=== PATIENT | female | born 1965 | race Caucasian/White ===

== ENCOUNTER 2019-11-22 17:37 | Emergency (ER) | payer OTHER, SELFPAY ==
[2019-11-22 17:38] VITALS: PULSE 96; RESP 16; TEMP 36.4; O2SAT 97; BMI 36.3
[2019-11-22 17:46] VITALS: BP 166/138
--- NOTE | 2019-11-22 17:48 | RAD_ITS ---
STUDY: X-RAY - LEFT RADIUS AND ULNA REASON FOR EXAM: Female, 54 years old. FALL, PAIN TECHNIQUE: 3 view(s) of the forearm. COMPARISON: None. FINDINGS: Nondisplaced fracture of the distal radius. No demonstrated extension to the articular surface. No angulation. No additional fracture. No dislocation. And bony structures are otherwise unremarkable. Medial soft tissue swelling. RAD/Forearm 2 Views IMPRESSION: Nondisplaced fracture of the distal radius. Electronically Signed: Samanta Isaac MD at 18:29 EDT Tel , Service support ,
--- NOTE | 2019-11-22 17:48 | ED.DCSUM_ITS ---
History of Present Illness Chief Complaint: Upper Extremity Injury Informant: Patient, Family Onset: Today Current Severity: Severe Maximum Severity: Severe Narrative: Patient presents with fall and left forearm injury. She fell in her garage landing on her left forearm. Patient denies striking her head or loss of consciousness. She denies neck pain. - Past Medical History (1) Asthma Status: Chronic (2) Benign hypertension Status: Chronic (3) History of pulmonary embolism Status: Chronic (4) Hypothyroidism Status: Chronic Past Medical History - Allergies and Home Meds Allergies/Adverse Reactions: Allergies No Known Allergies Allergy (Verified 11/22/19 17:41) Primary Care Physician: Inder Ramires III, MD [Primary Care Provider] - Surgical History: - - Radial decompression bilateral elbows Smoking Status: Current every day smoker Review of Systems General: Denies: Chills, Fever Eyes: Denies: Visual changes - bilaterally ENT: Denies: Bilateral ear pain Cardiovascular: Denies: Chest pain Respiratory: Denies: Dyspnea, Cough Gastrointestinal: Denies: Abdominal pain, Vomiting Musculoskeletal: Reports: Extremity Pain Skin: Denies: Rash Neurological: Denies: Headache Hematologic: Denies: Easy bruising, Easy bleeding Allergy: Denies: Uticaria, Swelling of the mouth Physical Exam Vital Signs/Narrative: Vital Signs Temp Pulse Resp BP Pulse Ox 11/22/19 17:46 166/138 H 11/22/19 17:38 97.5 F L 96 16 97 Inital Vital Signs reviewed: Yes General: Well nourished, Well developed Head: Normocephalic ENT: Moist mucous membranes Neck: Supple Cardiovascular: Tachycardia Respiratory: No distress, CTA bilaterally Abdomen: Soft, Nontender Extremities: - - Diffuse tenderness throughout the left forearm. No tenderness at the elbow or shoulder. Patient can wiggle fingers and has good sensation and cap refill distally. Neurological: Alert, Oriented x3 Psychological: Tearful Diagnostic/Tx/Re-eval Impressions Forearm X-Ray 11/22/19 17:48 IMPRESSION: Nondisplaced fracture of the distal radius. Electronically Signed: Samanta Isaac MD at 18:29 EDT Tel , Service support , 11/22/19 17:48 Xray Forearm [Forearm 2 Views] [RAD] Stat - Medical Decision Making Patient was given a total of 1.5 mg IV Dilaudid for pain control. [facility]- Glass splint is applied by myself. Following splint application she has good cap refill distally and can wiggle fingers. Patient be given a prescription for Percocet for pain control. She has seen Dr. Oneal at the [facility] in the past and will follow up with him. Procedures - Upper Extremity Splints Upper Extremity Splint: Orthoglass Splint Fabrication: Fabricated Location: Left ED Disposition - Plan for ED Patient: Disposition: Home or Assisted Living Diagnosis: Left wrist fracture Instructions: ED WRIST FRACTURE General Prescriptions: Oxycodone HCl/Acetaminophen [Percocet 5/325] 1 tablet PO Q6H PRN PRN 5 Days #20 tablet PRN Reason: Pain Score 4-10/10 Referrals: Ja Oneal MD [NON-STAFF] - 5-7 Days
[2019-11-22] MEDS: Ondansetron 4 MG/2 ML Vial IV (17:51)
[2019-11-22] MEDS: HYDROmorphone 1 MG/ML Syringe IV (17:51)
[2019-11-22] MEDS: 0.9% Normal Saline 1,000 ML 150 ML IV (18:00)
[2019-11-22] MEDS: HYDROmorphone 0.5 MG/0.5 ML SYRINGE IV (18:22)
[2019-11-22 18:52] VITALS: BP 154/92
== END 2019-11-22 19:05 | disposition home or self-care (01) ==
PROVIDERS: Emergency Provider Emergency Medicine; PCP Family Medicine
DX: S52.502A Unspecified fracture of the lower end of left radius, initial encounter for closed fracture (principal); J45.909 Unspecified asthma, uncomplicated; I10 Essential (primary) hypertension; E03.9 Hypothyroidism, unspecified; F17.200 Nicotine dependence, unspecified, uncomplicated; Z86.711 Personal history of pulmonary embolism; Z79.51 Long term (current) use of inhaled steroids; Z79.899 Other long term (current) drug therapy; W18.30XA Fall on same level, unspecified, initial encounter; Y93.89 Activity, other specified; Y92.008 Other place in unspecified non-institutional (private) residence as the place of occurrence of the external cause; Y99.8 Other external cause status
CPT/HCPCS: 29125; 73090; 96361; 96374; 96375; 96376; 99284; J7030; A4216; J2405

== ENCOUNTER → 2019-11-26 | Outpatient (CLI) | payer OTHER, SELFPAY ==
[2019-11-22 17:38] VITALS: BMI 36.3
== END | disposition home or self-care (01) ==
LOC: LABSPEC 14:23
PROVIDERS: PCP Family Medicine; Visit Provider Family Medicine
DX: Z11.59 Encounter for screening for other viral diseases (principal)
CPT/HCPCS: 87635; U0003

== ENCOUNTER → 2019-12-08 | Outpatient (CLI) | payer OTHER, SELFPAY ==
[2019-11-22 17:38] VITALS: BMI 36.3
== END | disposition home or self-care (01) ==
LOC: LABSPEC 14:58
PROVIDERS: PCP Family Medicine; Visit Provider Family Medicine
DX: Z11.59 Encounter for screening for other viral diseases (principal)
CPT/HCPCS: 87635; U0003

== ENCOUNTER → 2020-08-10 | Outpatient (CLI) | payer BC, SELFPAY | END | disposition home or self-care (01) | PROVIDERS: PCP Family Medicine; Referring Provider Family Medicine; Visit Provider Family Medicine | DX: U07.1 COVID-19 (principal) | CPT/HCPCS: 87635; U0005; U0003 ==

== ENCOUNTER 2020-08-11 12:27 | Emergency (ER) | payer BC, SELFPAY ==
[2020-08-11 12:28] VITALS: BP 164/100; PULSE 74; RESP 18; TEMP 36.6; O2SAT 97; BMI 36.3
[2020-08-11 12:38] VITALS: O2SAT 95
--- NOTE | 2020-08-11 12:49 | ED.VIS.DYS ---
HPI History of Present Illness Chief Complaint: Shortness of Breath Informant: patient and spouse/S.O. Onset/Context/Timing Onset: Weeks Context: gradual Timing: Continuous Current Severity: Mild Maximum Severity: Severe Worsened by: Exertion and Coughing Relieved by: Nothing Associated Symptoms cough, rhinorrhea, sore throat, yellow sputum and other; Negative for ear pain, fever, subjective, chills or sweats Chest Pain: Positive for None Narrative Narrative: Patient is a middle-aged woman with history of chronic significant asthma on multiple meds who presents because she had no improvement after 2 aerosol treatments. Patient has been ill most of July. She was given a Kenalog injection earlier this month. She denies headache, visual, ocular or auditory symptoms. She does report rhinorrhea and congestion. She does have history of allergies. She denies pleuritic pain, leg pain or swelling. She does have history of PE and is concerned because she has hemoptysis. She denies GI or symptoms. She denies rash. She denies myalgias or arthralgias. She had a rapid Covid test performed at the hospital this morning that was positive. PE Risk Factors: Positive for Prior DVT or PE; Negative for Cancer, OCP + Smoking + > 35, Recent immobilization, Recent surgery and Recent travel Prior similar symptoms: Yes Recent Illness/Hospitalization: No PFSH PFSH Medical History Asthma Hypothyroid Polycystic ovarian disease Pulmonary embolus Home Medications Fluticasone 220 Mcg [Flovent 220 Mcg] 2 puff INHALATION BID 03/29/13 [History Last Taken 01/13/15] levothyroxine 112 mcg PO DAILY 03/29/13 [History Last Taken 01/13/15] metformin 500 mg PO BIDCM 03/29/13 [History Last Taken 01/13/15] montelukast 10 mg PO DAILY 02/09/16 [History Last Taken Unknown] albuterol sulfate 2.5 mg INHALATION Q4H PRN PRN 03/25/17 [History Last Taken Unknown] fexofenadine-pseudoephedrine 1 ea PO BID 11/22/19 [History Last Taken Unknown] Allergy/AdvReac Type Severity Reaction Status Date / Time No Known Allergies Allergy Verified 11/22/19 17:41 Social History (Updated 05/28/21 @ 12:[address] Yonas Medina MD) household members: spouse and children Smoking Status: Never smoker alcohol intake: current alcohol intake frequency: holidays/special occasions only substance use type: does not use ROS ROS ED Constitutional Constitutional ED: Denies chills, fever(s) or sweats Eyes Eyes: Denies blurry vision or change in vision ENT ENT ED: Reports rhinorrhea and sore throat; Denies ear pain Cardiovascular Cardiovascular: Denies chest pain, orthopnea, palpitations, paroxysmal nocturnal dyspnea or racing heartbeat Respiratory/Chest Respiratory/Chest: Reports cough, dyspnea, dyspnea on exertion and sputum; Denies orthopnea or paroxysmal nocturnal dyspnea Gastrointestinal Gastrointestinal: Denies abdominal pain, constipation, diarrhea, melena, nausea or vomiting Genitourinary Genitourinary ED: Denies dysuria, hematuria or urinary frequency Musculoskeletal Musculoskeletal: Denies arthralgias, myalgias or neck pain Integumentary Denies rash Neurologic Neurologic: Denies headache(s) or weakness Hematologic/Lymphatic Hematologic/Lymphatic: Denies easy bleeding or easy bruising EXAM Physical Exam Const Vital Signs: 08/11/20 12:28 08/11/20 12:38 08/11/20 14:26 Temperature 97.8 F 97.8 F Temperature Source Temporal Oral Pulse Rate 74 61 Respiratory Rate 18 12 Respiratory Effort Short of Breath Labored Respiratory Depth Normal Respiratory Pattern Normal Blood Pressure 164/100 H 138/87 H Blood Pressure Mean 121 104 Pulse Ox 97 92 Oxygen Delivery Method Room Air Room Air Room Air Positive well nourished, well developed and obese General Appearance ED: well developed and other Patient has expiratory stridor and not wheezing. She appears in respiratory distress. She is tachypneic. There is minimal use of accessory muscles. There is no retractions. Nutritional Appearance: obese HEENT Reports moist mucous membranes HEENT Narrative: Uvula is midline. There is no evidence of angioedema. Negative for tenderness Eyes PERRL and EOMs intact bilaterally General Eye ED: Negative for pale conjunctiva or scleral icterus Neck no lymphadenopathy, supple, no meningeal signs and no JVD Neck Narrative: Trachea is midline and with forced expiration there is expiratory stridor. General: Negative for tenderness Resp No normal respiratory effort and clear to auscultation bilaterally Cardio regular rate, regular rhythm, S1 normal heart sound, S2 normal heart sound and no murmurs GI non-distended and no masses Auscultation: normoactive bowel sounds Palpation: soft Back/Spine no CVA tenderness and normal to inspection Extremity normal to inspection Extremity Narrative: There is no asymmetry, swelling, discoloration, leg vein distention, palpable cords or tenderness along the distribution of the deep venous system. General Extremety ED: Negative for edema or tenderness General Extremity: Negative for edema Neuro oriented x3, CN's II-XII intact bilaterally and no sensory deficits noted Sensorium / Orientation: alert Motor Exam: strength 5/5 throughout Psych mental status grossly normal Thought Process: normal thought process Skin no wounds Lesions: no lesions Rashes: no rashes MDM MDM MDM Narrative Medical decision making narrative: Patient is not PERC negative. Will obtain a D-dimer. Chest x-ray was obtained to evaluate for pneumonia since she has a positive Covid test. Soft tissue x-ray of the neck was obtained because of the expiratory stridor. Appropriate blood work was ordered as well. She was treated with Solu-Medrol. Lab Data Attestation: I reviewed the patient's lab results. Lab results narrative: Creatinine is slightly up from baseline. She has mild renal insufficiency. Labs: Laboratory Results - last 24 hr 08/11/20 08/11/20 08/11/20 12:45 12:45 12:45 WBC 4.6 RBC 4.97 Hgb 14.5 Hct 45.0 MCV 90.5 MCH 29.2 MCHC 32.2 RDW Std Deviation 46.4 H RDW Coeff of Evangelist 14.1 Plt Count 206 MPV 10.8 Immature Gran % (Auto) 0.200 Neut % (Auto) 53.7 Lymph % (Auto) 36.2 [place] % (Auto) 8.8 Eos % (Auto) 0.9 Baso % (Auto) 0.2 Absolute Neuts (auto) 2.5 Absolute Lymphs (auto) 1.65 Nucleated RBC % 0 D-Dimer Quant (PE/DVT) 0.52 H* Sodium 140 Potassium 3.7 Chloride 106 Carbon Dioxide 27.0 Anion Gap 7 BUN 18 Creatinine 1.13 H Estim Creat Clear Calc 53.28 Est GFR (MDRD) Af Amer 64 Est GFR (MDRD) Non-Af 53 L BUN/Creatinine Ratio 15.9 Glucose 85 Lactic Acid Calcium 9.3 Total Bilirubin 0.50 AST 39 H ALT 47 Alkaline Phosphatase 117 Total Protein 7.9 Albumin 3.9 Globulin 4.0 Albumin/Globulin Ratio 1.0 08/11/20 13:05 WBC RBC Hgb Hct MCV MCH MCHC RDW Std Deviation RDW Coeff of Evangelist Plt Count MPV Immature Gran % (Auto) Neut % (Auto) Lymph % (Auto) [place] % (Auto) Eos % (Auto) Baso % (Auto) Absolute Neuts (auto) Absolute Lymphs (auto) Nucleated RBC % D-Dimer Quant (PE/DVT) Sodium Potassium Chloride Carbon Dioxide Anion Gap BUN Creatinine Estim Creat Clear Calc Est GFR (MDRD) Af Amer Est GFR (MDRD) Non-Af BUN/Creatinine Ratio Glucose Lactic Acid 1.6 Calcium Total Bilirubin AST ALT Alkaline Phosphatase Total Protein Albumin Globulin Albumin/Globulin Ratio D-dimer is normal once corrected for age. Radiography Chest X-Ray - ED: 1 View, Read by ED Physician (Single chest x-ray was normal cardiac size and silhouette. Mediastinum is normal. Lung parenchyma is normal. Osseous structures are normal.) and - (2 view x-ray of the soft tissue reveals normal epiglottis, retropharyngeal space and parapharyngeal space. There is no evidence of sublingual or enlarged tonsils.) Diagnostic Testing: Radiology Impression Chest X-Ray 08/11/20 13:22 IMPRESSION: No acute cardiopulmonary findings Electronically Signed: Dk Cedeno DO at 13:55 EDT Tel , Service support , Soft Tissue Neck X-Ray 08/11/20 13:22 IMPRESSION: Normal x-ray soft tissue neck. Electronically Signed: Christopher Whiteside MD ([place]) at 13:37 EDT , Service support , Discharge Plan Triage Chief Complaint: Shortness of Breath ED Provider: Yonas Medina Dx/Rx/DC Orders Clinical Impression: COVID-19 virus infection, Asthma, Cough with hemoptysis Instructions: Coronavirus Disease 2019 (COVID-19): Caring for Yourself or Others, ED Hemoptysis Prescriptions: No Action metformin 500 MG tablet 500 mg PO BIDCM RF: 0 levothyroxine 112 MCG tablet 112 mcg PO DAILY RF: 0 Fluticasone 220 Mcg [Flovent 220 Mcg] 1 INHALER inhaler 2 puff inhalation BID RF: 0 montelukast 10 MG tablet 10 mg PO DAILY RF: 0 albuterol sulfate 2.5 MG/3 ML Vial.Neb. 2.5 mg inhalation Q4H PRN PRN (Reason: Sob &/Or Wheezing) RF: 0 fexofenadine-pseudoephedrine 1 EACH tablet extended release 12 hr 1 ea PO BID RF: 0 Primary Care Provider: Inder Ramires III Referrals: Inder Ramires III, MD [Primary Care Provider] - Chapito Lane DO [NON-STAFF] - 1-2 Weeks (Patient is Covid positive. Patient has several symptoms that suggest obstructive sleep apnea. Once she is Covid recovered she should have an outpatient test for obstructive sleep apnea) Disposition Disposition: Home, self care
[2020-08-11 12:55] LABS: Absolute Lymphocyte Count 1.65 X10^3/uL (0.83-4.51); Absolute Neutrophil Count 2.5 X10^3/uL (2.0-7.7); Basophil# 0.01 X10^3/uL; Basophil% 0.2 % (0-1); Eosinophil# 0.04 X10^3/uL; Eosinophils% 0.9 % (0-5); Hemoglobin 14.5 g/dL (12.0-15.0); Lymphocyte # 1.65 X10^3/ul (0.83-4.51); Lymphocyte % 36.2 % (19-41); Mean Corp Hgb Conc 32.2 g/dL (32-36); Mean Corpuscular Hgb 29.2 pg (27.0-32.0); Mean Corpuscular Volume 90.5 fL (81-99); Mean Platelet Vol. 10.8 fl (6.2-12.0); Monocyte% 8.8 % (0-10); NRBC Flagged by Analyzer 0 % (0-5); Neutrophil # 2.45 X10^3/uL (2.7-7.7); Neutrophil % 53.7 % (47-70); Platelet Count 206 K/mm3 (150-450); RBC Distribution Width CV 14.1 % (11.6-14.6); RBC Distribution Width SD 46.4 fl (35.1-43.9); Red Blood Count 4.97 M/mm3 (4.2-5.4); White Blood Count 4.6 K/mm3 (4.4-11.0)
[2020-08-11] MEDS: MethylPREDNISolone 125 MG/2 ML Vial IV (13:11)
[2020-08-11 13:12] LABS: AST(SGOT) 39 U/L (15-37); Alanine Aminotransfer ALT/SGPT 47 U/L (13-56); Albumin, Serum 3.9 g/dL (3.2-5.0); Alkaline Phosphatase 117 U/L (45-117); Anion Gap 7 (5-15); BUN 18 mg/dL (7-18); BUN/Creat Ratio 15.9 RATIO (10-20); Calcium,Total 9.3 mg/dL (8.5-10.1); Chloride 106 mmol/L (98-107); Creatinine, Serum 1.13 mg/dL (0.55-1.02); EST Glomerular Filtration Rate 53 mL/min (>60); Est Glom Filt Rate - Afr Amer 64 mL/min (>60); Estimated Creatinine Clearance 53.28 ml/min; Glucose 85 mg/dL (74-106); Potassium 3.7 mmol/L (3.5-5.1); Protein, Total 7.9 g/dL (6.4-8.2); Sodium Level 140 mmol/L (136-145)
[2020-08-11 13:14] LABS: D-Dimer Quantitative (DVT/PE) 0.52 FEU/ug/m (0.27-0.49)
--- NOTE | 2020-08-11 13:22 | RAD_ITS ---
STUDY: X-RAY - SOFT TISSUE NECK REASON FOR EXAM: Female, 54 years old. Expiratory stridor TECHNIQUE: 2 view(s) of the neck were obtained. COMPARISON: None. FINDINGS: Normal visualized nasopharynx, oropharynx, hypopharynx. Normal epiglottis. Normal visualized subglottic tracheal air column. Normal prevertebral soft tissue structures. There are degenerative changes of the cervical spine with cervical spondylosis. The soft tissue structures are unremarkable. RAD/Neck for Soft Tissue IMPRESSION: Normal x-ray soft tissue neck. Electronically Signed: Christopher Whiteside MD ([place]) at 13:37 EDT , Service support ,
--- NOTE | 2020-08-11 13:22 | RAD_ITS ---
STUDY: X-RAY CHEST REASON FOR EXAM: Female, 54 years old. cough TECHNIQUE: Single AP portable view of the chest. COMPARISON: 09/22/2012. FINDINGS: Left shoulder rotator cuff repair. Cardiac silhouette unremarkable. Pulmonary vascularity unremarkable. Aorta unremarkable. No focal patchy airspace opacities. No pleural effusions. Upper abdomen unremarkable. Osseous structures intact. No pneumothorax. RAD/Chest 1 View (Portable) IMPRESSION: No acute cardiopulmonary findings Electronically Signed: Dk Cedeno DO at 13:55 EDT Tel , Service support ,
[2020-08-11 13:46] LABS: Lactic Acid 1.6 mmol/L (0.4-1.9)
[2020-08-11 14:26] VITALS: BP 138/87; PULSE 61; RESP 12; TEMP 36.6; O2SAT 92
== END 2020-08-11 14:55 | disposition home or self-care (01) ==
PROVIDERS: Emergency Provider Emergency Medicine; PCP Family Medicine
DX: U07.1 COVID-19 (principal); J45.909 Unspecified asthma, uncomplicated; R04.2 Hemoptysis; E03.9 Hypothyroidism, unspecified; E66.9 Obesity, unspecified; Z79.899 Other long term (current) drug therapy; Z79.51 Long term (current) use of inhaled steroids
CPT/HCPCS: 36415; 70360; 71045; 80053; 83605; 85025; 85379; 87040; 96374; 99284; A4216

== ENCOUNTER 2020-08-18 07:15 | Inpatient (IN) | payer BC, SELFPAY ==
[2020-08-18] VITALS (18 sets, daily range): BP systolic 141–181; BP diastolic 89–111; PULSE 58–93; RESP 14–24; TEMP 36.6–37.4; O2SAT 93–100; BMI 36.3
--- NOTE | 2020-08-18 07:29 | EKG12_ITS ---
Test Reason : SOB Blood Pressure : / mmHG Vent. Rate : 088 BPM Atrial Rate : 088 BPM P-R Int : 176 ms QRS Dur : 088 ms QT Int : 388 ms P-R-T Axes : 058 040 030 degrees QTc Int : 469 ms Normal sinus rhythm Normal ECG Confirmed by NATACHA MILLS, GRACE ([id number]), slot editor REZA DESHPANDE ([id number]) on 08/21/2020 10:33:49 AM Referred By: BRAYAN Confirmed By:GRACE MANZANO MD
--- NOTE | 2020-08-18 07:29 | CT_ITS ---
STUDY: CTA CHEST REASON FOR EXAM: Female, 54 years old. Shortness of breath. Recent diagnoses of Covid RADIATION DOSAGE (If Supplied By Facility): CTDIvol = ( 15.59 ) mGy, DLP = ( 920.54 ) mGycm TECHNIQUE: The examination was performed with the intravenous administration of IV 100mL Isovue-370. Post-processing of the angiographic images was performed, with multiplanar reformation and 3D reconstruction. Individualized dose optimization techniques were used for this CT. COMPARISON: Comparison is made with prior study dated 03/25/2017. FINDINGS: Normal enhancement of the main pulmonary artery and right and left pulmonary arteries. Normal enhancement of the bilateral peripheral pulmonary arteries. There is no demonstrated pulmonary embolism. Normal thoracic aorta and visualized great vessels. There is no demonstrated aortic dissection. Normal heart and pericardium. Normal mediastinum. There is a 1.5 cm lymph node in the right hilar region. Normal visualized trachea and bronchi. The lungs are well expanded. Focal atelectasis and/or infiltrate in the posterior aspect of the right upper lobe. There is evidence of a consolidation in the right lower lobe. Minimal increased markings in the left infrahilar region. Minimal increased markings at the left lung base. Normal pleura. Normal chest wall structures. There are degenerative changes of thoracic spine. Normal visualized upper abdomen. CT/CTA Chest W/WO Contrast IMPRESSION: No evidence of pulmonary embolism. Consolidation in the right lower lobe with minimal increased markings in the left infrahilar region as well as in the posterior aspect of the right upper lobe. Electronically Signed: Selvin Herrmann MD at 9:24 EDT , Service support ,
--- NOTE | 2020-08-18 07:33 | EDS_ITS ---
HPI History of Present Illness Chief Complaint: Shortness of Breath Informant: patient and family Onset/Context/Timing Onset: Days Context: gradual Timing: Continuous Quality: Positive for Dyspnea on exertion and Wheezing Current Severity: Moderate Maximum Severity: Moderate Worsened by: Coughing Relieved by: Nothing Associated Symptoms cough Chest Pain: Positive for Intermittent and Tightness Narrative Narrative: Patient is a 54-year-old female medical history significant for asthma, hypertension, history of pulmonary embolus, and recent diagnosis of Covid who presents to the emergency department cough, shortness of breath, and chest pain. Patient was diagnosed about a week ago. She was seen here. At that point, she underwent work-up which was essentially unremarkable. She was discharged home. The patient states that she has been checking her pulse ox daily. She states she was doing well until yesterday. Overnight throughout the morning, her pulse ox has been anywhere from 86-92. She would have coughing fits with worsening chest pain. She felt like she was going to pass out. [facility] Medical History Asthma Hypothyroid Polycystic ovarian disease Pulmonary embolus Home Medications levothyroxine 112 mcg PO DAILY 03/29/13 [History Last Taken 01/13/15] metformin 500 mg PO BIDCM 03/29/13 [History Last Taken 01/13/15] montelukast 10 mg PO DAILY 02/09/16 [History Last Taken Unknown] albuterol sulfate 2.5 mg INHALATION Q4H PRN PRN 03/25/17 [History Last Taken Unknown] fexofenadine-pseudoephedrine 1 ea PO BID 11/22/19 [History Last Taken Unknown] Allergy/AdvReac Type Severity Reaction Status Date / Time No Known Allergies Allergy Verified 08/18/20 07:20 Social History household members: spouse and children Smoking Status: Never smoker alcohol intake: current alcohol intake frequency: holidays/special occasions only substance use type: does not use ROS ROS ED Constitutional Constitutional ED: Reports chills Eyes Eyes: Denies blurry vision or change in vision ENT ENT ED: Denies ear pain or sore throat Cardiovascular Cardiovascular: Reports chest pain Respiratory/Chest Respiratory/Chest: Reports cough and dyspnea Gastrointestinal Gastrointestinal: Denies abdominal pain, nausea or vomiting Genitourinary Genitourinary ED: Denies dysuria or urinary frequency Musculoskeletal Musculoskeletal: Denies arthralgias or myalgias Integumentary Denies rash Neurologic Neurologic: Reports weakness Psychiatric Psychiatric: Denies anxiety or depression Endocrine Endocrinology: Denies polydipsia or polyuria Allergic/Immunologic Allergic/Immunologic ED: Denies urticaria EXAM Physical Exam Const Vital Signs: 08/18/20 07:17 08/18/20 07:29 08/18/20 07:36 Temperature 98.3 F 98.3 F Temperature Source Temporal Temporal Pulse Rate 93 93 Respiratory Rate 17 17 Respiratory Effort Short of Breath Labored Blood Pressure 169/92 H 169/92 H Blood Pressure Mean 117 117 Pulse Ox 95 95 Oxygen Delivery Method Room Air Room Air Room Air 08/18/20 07:55 Temperature Temperature Source Pulse Rate 78 Respiratory Rate 20 H Respiratory Effort Blood Pressure Blood Pressure Mean Pulse Ox Oxygen Delivery Method Positive well nourished and well developed General Appearance ED: well developed HEENT Reports normocephalic, head/scalp atraumatic and moist mucous membranes Eyes PERRL and EOMs intact bilaterally Neck no lymphadenopathy and supple General: Negative for tenderness Chest Wall inspection of chest normal Resp normal respiratory effort Auscultation: diminished lung sounds Cardio regular rate, regular rhythm and no murmurs GI normal to inspection, nondistended, normoactive bowel sounds Palpation: Negative for tender, guarding or rebound tenderness present Back/Spine no CVA tenderness Cervical Spine: Negative for cervical spine tenderness Thoracic Spine / Upper Back: Negative for thoracic spinal tenderness Extremity normal to inspection General Extremety ED: Negative for tenderness Neuro oriented x3 and CN's II-XII intact bilaterally Neuro Narrative: No focal deficits appreciated. Sensorium / Orientation: alert; Negative for confused or lethargic Psych mental status grossly normal Skin no rashes or lesions noted, no wounds and skin turgor normal MDM MDM MDM Narrative Medical decision making narrative: The patient presents Covid positive with persistent bronchospasm and intermittent hypoxia. IV was established. Patient was given a breathing treatment with some improvement. She still had persistent bronchospasm. Labs were obtained were unremarkable. With patient's history of PE and borderline hypoxia, I did obtain CTA. There is no evidence of pulmonary embolus. There is a dense right lower lobe infiltrate. This may be viral, but given her persistent symptoms and hypoxia I am going to cover her with broad- spectrum antibiotics. The patient was also covered with Decadron. At this po int, I do feel that she effectively has failed outpatient treatment. She has oxygen requirement with dense pneumonia and history of underlying lung disease. I do feel that she would benefit from admission. Impression 1. Hypoxia requiring supplemental oxygen 2. COVID-19 3. Right lower lobe pneumonia Lab Data Attestation: I reviewed the patient's lab results. Labs: Laboratory Results - last 24 hr 08/18/20 08/18/20 08/18/20 07:45 07:45 07:45 WBC 4.5 RBC 4.60 Hgb 13.5 Hct 41.0 MCV 89.1 MCH 29.3 MCHC 32.9 RDW Std Deviation 45.8 H RDW Coeff of Evangelist 14.1 Plt Count 172 MPV 10.8 Immature Gran % (Auto) 0.700 Neut % (Auto) 68.0 Lymph % (Auto) 21.8 [place] % (Auto) 8.0 Eos % (Auto) 1.3 Baso % (Auto) 0.2 Absolute Neuts (auto) 3.1 Absolute Lymphs (auto) 0.98 Nucleated RBC % 0 Sodium 140 Potassium 3.4 L Chloride 106 Carbon Dioxide 27.0 Anion Gap 7 BUN 15 Creatinine 0.90 Estim Creat Clear Calc 66.90 Est GFR (MDRD) Af Amer 83 Est GFR (MDRD) Non-Af 69 BUN/Creatinine Ratio 16.6 Glucose 97 Lactic Acid 1.3 Calcium 8.9 Total Bilirubin 0.60 AST 35 ALT 44 Alkaline Phosphatase 110 Troponin I < 0.015 Total Protein 7.9 Albumin 3.7 Globulin 4.2 Albumin/Globulin Ratio 0.9 Rhythm Strip Rhythm Strip: Sinus Rhythm Rate: 80 Ectopy: None EKG Initial EKG: Attestation: I personally reviewed and interpreted this EKG as follows: Interpretation: Sinus Rhythm and Non-Specific ST Changes Prior EKG tracings: available for review Prior: Unchanged Discharge Plan Triage Chief Complaint: Shortness of Breath ED Provider: Godfrey Duarte Dx/Rx/DC Orders Prescriptions: No Action metformin 500 MG tablet 500 mg PO BIDCM RF: 0 levothyroxine 112 MCG tablet 112 mcg PO DAILY RF: 0 montelukast 10 MG tablet 10 mg PO DAILY RF: 0 albuterol sulfate 2.5 MG/3 ML solution for nebulization 2.5 mg inhalation Q4H PRN PRN (Reason: Sob &/Or Wheezing) RF: 0 fexofenadine-pseudoephedrine 1 EACH tablet extended release 12 hr 1 ea PO BID RF: 0 Primary Care Provider: Inder Ramires III
[2020-08-18] MEDS: 0.9% Normal Saline 1,000 ML 125 ML IV ×3 (07:45→21:07)
[2020-08-18] MEDS: Ipratropium/Albuterol Sulfate 3 ML AMPUL.NEB INHALATION ×4 (07:55→22:49)
[2020-08-18 07:59] LABS: Absolute Lymphocyte Count 0.98 X10^3/uL (0.83-4.51); Absolute Neutrophil Count 3.1 X10^3/uL (2.0-7.7); Basophil# 0.01 X10^3/uL; Basophil% 0.2 % (0-1); Eosinophil# 0.06 X10^3/uL; Eosinophils% 1.3 % (0-5); Hemoglobin 13.5 g/dL (12.0-15.0); Lymphocyte # 0.98 X10^3/ul (0.83-4.51); Lymphocyte % 21.8 % (19-41); Mean Corp Hgb Conc 32.9 g/dL (32-36); Mean Corpuscular Hgb 29.3 pg (27.0-32.0); Mean Corpuscular Volume 89.1 fL (81-99); Mean Platelet Vol. 10.8 fl (6.2-12.0); Monocyte# 0.36 X10^3/uL; NRBC Flagged by Analyzer 0 % (0-5); Neutrophil # 3.06 X10^3/uL (2.7-7.7); Platelet Count 172 K/mm3 (150-450); RBC Distribution Width CV 14.1 % (11.6-14.6); RBC Distribution Width SD 45.8 fl (35.1-43.9); White Blood Count 4.5 K/mm3 (4.4-11.0)
[2020-08-18] MEDS: LORazepam 2 MG/ML Syringe 0.5 MG IV (08:02)
[2020-08-18 08:18] LABS: ALB/GLOB Ratio 0.9 RATIO (0.9-2.4); AST(SGOT) 35 U/L (15-37); Alanine Aminotransfer ALT/SGPT 44 U/L (13-56); Albumin, Serum 3.7 g/dL (3.2-5.0); Alkaline Phosphatase 110 U/L (45-117); Anion Gap 7 (5-15); BUN 15 mg/dL (7-18); BUN/Creat Ratio 16.6 RATIO (10-20); Calcium,Total 8.9 mg/dL (8.5-10.1); Chloride 106 mmol/L (98-107); EST Glomerular Filtration Rate 69 mL/min (>60); Est Glom Filt Rate - Afr Amer 83 mL/min (>60); Globulin 4.2 g/dL (2.2-4.2); Glucose 97 mg/dL (74-106); Potassium 3.4 mmol/L (3.5-5.1); Protein, Total 7.9 g/dL (6.4-8.2); Sodium Level 140 mmol/L (136-145)
[2020-08-18 08:41] LABS: Lactic Acid 1.3 mmol/L (0.4-1.9)
[2020-08-18] MEDS: dexAMETHasone 10 MG/ML Vial 6 MG IV (09:01)
[2020-08-18] MEDS: Ceftriaxone 1 GM/50 ML BAG IV (09:14)
[2020-08-18] MEDS: Albuterol 2.5 MG/3 ML VIAL.NEB. INHALATION (09:22)
--- NOTE | 2020-08-18 09:23 | ED.RN ---
while pt in CT, IV IN AC INFILTRATED.
--- NOTE | 2020-08-18 09:35 | HP.PCM_ITS ---
HPI - General General Date of Admission: 08/18/20 HPI Narrative NIKIA HUMPHREYS, is a 54 F with a PMH as outlined who presents with a complaint of shortness of breath, She was recently diagnosed with covid about a week ago. She presented with cough, shortness of breath and chest pain. She tested positive for COVID on August 10. She wasnt hypoxic the, so was discharged home. However, she has been progressively getting worse, with worsening shortness of breath, and cough. She says at home, her sats were between 86-92%. On admission in the ED, vitals were emp of 98.3F, with DC of 97, RR of 17 and she was saturating at 95% on room air. CBC showed wbc of 4.5, Hb of 13.5 and platelets of 172. CTA of the chest was negative for PE, but showed a dense right lower lobe infiltrate. SHe is being admitted to be managed for covid 19 infection with superimposed pneumonia. Of note, patient states she has not gotten the Covid vaccine because of previous severe allergies and anaphylactic reaction to vaccines such as flu vaccine. [facility] Medical History Asthma Hypothyroid Polycystic ovarian disease Pulmonary embolus Home Medications levothyroxine 112 mcg PO DAILY 03/29/13 [History Last Taken 01/13/15] metformin 500 mg PO BIDCM 03/29/13 [History Last Taken 01/13/15] montelukast 10 mg PO DAILY 02/09/16 [History Last Taken Unknown] albuterol sulfate 2.5 mg INHALATION Q4H PRN PRN 03/25/17 [History Last Taken Unknown] fexofenadine-pseudoephedrine 1 ea PO BID 11/22/19 [History Last Taken Unknown] Allergy/AdvReac Type Severity Reaction Status Date / Time No Known Allergies Allergy Verified 08/18/20 07:20 Social History household members: spouse and children Smoking Status: Never smoker alcohol intake: current alcohol intake frequency: holidays/special occasions only substance use type: does not use ROS Constitutional Constitutional: Reports chills, fatigue, fever(s), malaise and weakness; Denies anorexia or change in weight Eyes Eyes: Denies blurry vision ENT HEENT: Denies dysphagia, hearing loss, loss taste/smell or nasal discharge Cardiovascular Cardiovascular: Denies chest pain, edema, orthopnea, palpitations or paroxysmal nocturnal dyspnea Respiratory/Chest Respiratory/Chest: Reports cough, shortness of breath at rest, shortness of breath with exertion and wheezing; Denies hemoptysis Gastrointestinal Gastrointestinal: Denies abdominal pain, diarrhea, dyspepsia, hematemesis, hematochezia, nausea or vomiting Genitourinary Genitourinary: Denies dysuria, hematuria, urinary frequency or urinary hesitancy Musculoskeletal Musculoskeletal: Denies back pain or joint swelling Integumentary Integumentary: Denies dry skin Neurologic Neurologic: Denies confusion, focal weakness or seizures Psychiatric Psychiatric: Denies anxiety or depression Endocrine Endocrinology: Denies change in body appearance Hematologic/Lymphatic Hematologic/Lymphatic: Denies anemia Vital Signs Vital Signs Vital Signs: 08/18/20 07:17 08/18/20 07:29 08/18/20 07:36 Temperature 98.3 F 98.3 F Temperature Source Temporal Temporal Pulse Rate 93 93 Respiratory Rate 17 17 Respiratory Effort Short of Breath Labored Blood Pressure 169/92 H 169/92 H Blood Pressure Mean 117 117 Pulse Ox 95 95 Oxygen Delivery Method Room Air Room Air Room Air Oxygen Flow Rate (L/min) 08/18/20 07:55 08/18/20 09:10 08/18/20 09:22 Temperature 98.3 F Temperature Source Temporal Pulse Rate 78 69 83 Respiratory Rate 20 H 16 16 Respiratory Effort Blood Pressure 181/111 H Blood Pressure Mean 134 Pulse Ox 99 Oxygen Delivery Method Nasal Cannula Oxygen Flow Rate (L/min) 2 Weight Weight: 225 lb Body Mass Index (BMI) 36.3 Physical Exam Const alert, oriented x3 and no apparent distress General Appearance: cooperative HEENT normocephalic and head/scalp atraumatic Mouth: dry mucous membranes Eyes PERRL and EOMs intact bilaterally Pupil: sluggish Neck supple and no JVD Lymph Lymphatic: no lymphadenopathy noted Resp Resp Narrative: diminished breath sounds bibasally, no wheezes or crackles. On 2L of oxygen. Cardio regular rate, regular rhythm, S1 normal heart sound, S2 normal heart sound and no murmurs GI normal to inspection, nondistended, normoactive bowel sounds, soft to palpation, non-tender and non-distended Extremity normal capillary refill and no clubbing, cyanosis or edema General Extremity: no tenderness to palpation of joints or extremities Skin General Skin Exam: turgor normal Rashes: no rashes Neuro CN's II-XII intact bilaterally and deep tendon reflexes 2+ bilaterally Motor Exam: strength 5/5 throughout Psych affect normal Results Lab / Micro Data Result Diagrams: 08/18/20 07:45 08/18/20 07:45 Labs: Laboratory Results - last 24 hr 08/18/20 08/18/20 08/18/20 07:45 07:45 07:45 WBC 4.5 RBC 4.60 Hgb 13.5 Hct 41.0 MCV 89.1 MCH 29.3 MCHC 32.9 RDW Std Deviation 45.8 H RDW Coeff of Evangelist 14.1 Plt Count 172 MPV 10.8 Immature Gran % (Auto) 0.700 Neut % (Auto) 68.0 Lymph % (Auto) 21.8 [place] % (Auto) 8.0 Eos % (Auto) 1.3 Baso % (Auto) 0.2 Absolute Neuts (auto) 3.1 Absolute Lymphs (auto) 0.98 Nucleated RBC % 0 Sodium 140 Potassium 3.4 L Chloride 106 Carbon Dioxide 27.0 Anion Gap 7 BUN 15 Creatinine 0.90 Estim Creat Clear Calc 66.90 Est GFR (MDRD) Af Amer 83 Est GFR (MDRD) Non-Af 69 BUN/Creatinine Ratio 16.6 Glucose 97 Lactic Acid 1.3 Calcium 8.9 Total Bilirubin 0.60 AST 35 ALT 44 Alkaline Phosphatase 110 Troponin I < 0.015 Total Protein 7.9 Albumin 3.7 Globulin 4.2 Albumin/Globulin Ratio 0.9 Micro: Microbiology 08/18/20 07:50 SARS-CoV-2 Antigen (Rapid) - Final Interface Orders Rhythm Strip Rhythm Strip: Sinus Rhythm Rate: 80 Ectopy: None Radiology Impression Chest CTA 08/18/20 07:29 IMPRESSION: No evidence of pulmonary embolism. Consolidation in the right lower lobe with minimal increased markings in the left infrahilar region as well as in the posterior aspect of the right upper lobe. Electronically Signed: Selvin Herrmann MD at 9:24 EDT , Service support , Assessment & Plan Assessment/Plan (1) COVID-19 virus infection: (2) Pneumonia: PLAN: #COVID 19 infection * admit to covid unit * hydrate gently with IVF * IV solumedrol * IV remdesivir * consult ID * breathing treatment with bronchodilators. * Titrate oxygen to maintain sats >90% * #RIght lower lobe pneumonia in setting of covid 19 infection * CTA chest showed dense right lower lobe infiltrate * check urine for strep and legionella antigens * check sputum culture and blood culture * IV ceftriaxone and azithromycin * #Hypokalemia: K is 3.4. Will replace adnd trend. #History of asthma: now wheezing, due to covid. On breathing treatment with bronchodilators. Titrate oxygen to maintain sats>90% #History of PE: stable #Benign essential hypertension #Hypothyroidism: on synthroid DVT prophylaxis: lovenox Code status: full code * Patient and counseled about differences between full code, DNR CCA and DNR CC. Patient was very tearful when asked this. Patient elected to be full code and wants to be intubated and have CPR if needed. * Total [id number] time 16 minutes. Charges/Coding Visit Charges Inpatient E&M: 04794 Init Hosp L3 Procedures Hospitalists Procedures: 24677 Advncd Care Plan 30 Min
[2020-08-18 12:48] LABS: BNP,B-Type NATRIURETIC PEPTIDE 3.7 pg/mL (0-100)
[2020-08-18 12:56] LABS: Procalcitonin 0.06 ng/mL (0.00-0.09)
[2020-08-18 12:57] LABS: D-Dimer Quantitative (DVT/PE) 0.82 FEU/ug/m (0.27-0.49)
[2020-08-18] MEDS: Enoxaparin 40 MG/0.4 ML Syringe SC (12:57)
--- NOTE | 2020-08-18 13:09 | PCM.CONS.GEN ---
Assessment & Plan Assessment/Plan (1) COVID-19 virus infection: PLAN: covid with hypoxia, possible associated bacterial pneumonia - c/o episode of hemoptysis. No sputum at this time. Will order urine antigens. On dex, remdesivir, azithro/ceftriaxone. CT neg for PE. Sx started 08/11. Quarantine for 20 days. Recommended covid vaccine, only contraindication is h/o anaphylaxis to any of the vaccine component; anaphylaxis with flu shot does not rule it out necessarily. Recommended get tested for covid. Thank you, will follow HPI Consult Data Date of Consult: 08/18/20 HPI Narrative HPI Narrative: NIKIA HUMPHREYS, is a 54 F who presented 08/11 to the ED. C/o several weeks of asthma worsening, then new onset hemoptysis, fever, headache, nausea, aches. Rapid covid (+), sent home. has been asymptomatic, neither have been vaccinated. She reports anaphylaxis with flu shot. Sx worsened, came back to hospital, admitted overnight on dex, remdesivir, azithro/ceftriaxone. No change in taste or smell. Full ROS performed and neg except as noted above. [facility] Medical History Asthma Hypothyroid Polycystic ovarian disease Pulmonary embolus Home Medications levothyroxine 112 mcg PO DAILY 03/29/13 [History Last Taken 01/13/15] metformin 500 mg PO BIDCM 03/29/13 [History Last Taken 01/13/15] montelukast 10 mg PO DAILY 02/09/16 [History Last Taken Unknown] albuterol sulfate 2.5 mg INHALATION Q4H PRN PRN 03/25/17 [History Last Taken Unknown] fexofenadine-pseudoephedrine 1 ea PO BID 11/22/19 [History Last Taken Unknown] Allergy/AdvReac Type Severity Reaction Status Date / Time No Known Allergies Allergy Verified 08/18/20 07:20 Social History household members: spouse and children Smoking Status: Never smoker alcohol intake: current alcohol intake frequency: holidays/special occasions only substance use type: does not use Physical Exam Const alert and oriented x3 General Appearance: cooperative HEENT normocephalic and head/scalp atraumatic Eyes PERRL and EOMs intact bilaterally Neck supple and No nodes Resp Auscultation: diminished lung sounds Cardio regular rate and regular rhythm GI normal to inspection, nondistended, normoactive bowel sounds Extremity no clubbing, cyanosis or edema Skin no rashes or lesions noted Neuro CN's II-XII intact bilaterally Lab / Micro Data Result Diagrams: 08/18/20 07:45 08/18/20 07:45 Labs: Laboratory Results - last 24 hr 08/18/20 08/18/20 08/18/20 07:45 07:45 07:45 WBC 4.5 RBC 4.60 Hgb 13.5 Hct 41.0 MCV 89.1 MCH 29.3 MCHC 32.9 RDW Std Deviation 45.8 H RDW Coeff of Evangelist 14.1 Plt Count 172 MPV 10.8 Immature Gran % (Auto) 0.700 Neut % (Auto) 68.0 Lymph % (Auto) 21.8 [place] % (Auto) 8.0 Eos % (Auto) 1.3 Baso % (Auto) 0.2 Absolute Neuts (auto) 3.1 Absolute Lymphs (auto) 0.98 Nucleated RBC % 0 D-Dimer Quant (PE/DVT) Sodium 140 Potassium 3.4 L Chloride 106 Carbon Dioxide 27.0 Anion Gap 7 BUN 15 Creatinine 0.90 Estim Creat Clear Calc 66.90 Est GFR (MDRD) Af Amer 83 Est GFR (MDRD) Non-Af 69 BUN/Creatinine Ratio 16.6 Glucose 97 Lactic Acid 1.3 Calcium 8.9 Total Bilirubin 0.60 AST 35 ALT 44 Alkaline Phosphatase 110 Troponin I < 0.015 B-Natriuretic Peptide Total Protein 7.9 Albumin 3.7 Globulin 4.2 Albumin/Globulin Ratio 0.9 Procalcitonin 08/18/20 08/18/20 08/18/20 07:45 07:45 07:45 WBC RBC Hgb Hct MCV MCH MCHC RDW Std Deviation RDW Coeff of Evangelist Plt Count MPV Immature Gran % (Auto) Neut % (Auto) Lymph % (Auto) [place] % (Auto) Eos % (Auto) Baso % (Auto) Absolute Neuts (auto) Absolute Lymphs (auto) Nucleated RBC % D-Dimer Quant (PE/DVT) 0.82 H* Sodium Potassium Chloride Carbon Dioxide Anion Gap BUN Creatinine Estim Creat Clear Calc Est GFR (MDRD) Af Amer Est GFR (MDRD) Non-Af BUN/Creatinine Ratio Glucose Lactic Acid Calcium Total Bilirubin AST ALT Alkaline Phosphatase Troponin I B-Natriuretic Peptide 3.7 Total Protein Albumin Globulin Albumin/Globulin Ratio Procalcitonin 0.06 Micro: Microbiology 08/18/20 07:50 SARS-CoV-2 Antigen (Rapid) - Final Interface Orders Rhythm Strip Rhythm Strip: Sinus Rhythm Rate: 80 Ectopy: None Radiology Impression Chest CTA 08/18/20 07:29 IMPRESSION: No evidence of pulmonary embolism. Consolidation in the right lower lobe with minimal increased markings in the left infrahilar region as well as in the posterior aspect of the right upper lobe. Electronically Signed: Selvin Herrmann MD at 9:24 EDT , Service support ,
[2020-08-18] MEDS: Montelukast 10 MG Tablet PO (13:11)
[2020-08-18] MEDS: Levothyroxine 112 MCG Tablet PO (13:11)
[2020-08-18] MEDS: Acetaminophen 325 MG Tablet 650 MG PO ×2 (13:14→19:49)
--- NOTE | 2020-08-18 13:32 | CON.PCM.CC_ITS ---
Assessment & Plan Assessment/Plan (1) COVID-19 virus infection: (2) Asthma: PLAN: RECOMMENDATIONS: 1. Wean supplemental oxygen to maintain saturations at or above 90%. 2. Continue remdesivir. Monitor liver and renal function accordingly. 3. Continue Decadron to complete 10-day treatment course. 4. Continue prophylactic Lovenox. 5. Encourage incentive spirometer use and mobilize patient as tolerated. 6. Continue empiric antimicrobials to complete 7-day treatment course. 7. Continue bronchodilator therapy. IMPRESSIONS: 1. Acute hypoxemic respiratory insufficiency secondary to COVID-19 pneumonia Plan to continue current supportive measures including supplemental oxygen to maintain saturations at or above 90%. The patient has been started on remdesivir, which will be continued to complete a 5-day treatment course. Plan to continue Decadron to complete 10-day treatment course. We will continue to monitor liver and renal function. CTA chest showed no evidence for pulmonary embolism. Therefore, prophylactic Lovenox can be continued. Given dense consolidation noted on chest imaging, it is reasonable to continue empiric antimicrobials as well to complete 7-day treatment course, should the patient have a superimposed bacterial pneumonia as well. Continue bronchodilator therapy. 2. Self-reported history of asthma/history of pulmonary embolism/hypertension/hypothyroidism Complicates care, management, recovery and prognosis. The patient is not currently on a maintenance inhaler regimen at her baseline. She only utilizes albuterol on an as-needed basis. Aerosolized bronchodilators will be continued while the patient is admitted to the hospital. Continue home medications as in dicated. This note was generated with [employer] dictation software. It may contain incorrect words, spelling, and punctuation that were not noted in checking the note before signing. HPI Consult Data Date of Consult: 08/19/20 HPI Narrative Reason for Consultation: Acute hypoxemic respiratory insufficiency secondary to COVID-19 pneumonia HPI Narrative: The patient is a 54-year-old female, with a history as outlined below, who presented to the emergency department on August 18 with complaints of worsening shortness of breath and cough. The patient had been evaluated in the emergency department on August 11 under similar circumstances, after having tested positive for coronavirus on August 10. However, the patient was not hypoxemic at that time and was discharged home. The patient has yet to be vaccinated, she apparently had developed anaphylaxis after receiving an influenza vaccination. On presentation to the emergency department, the patient was noted to be afebrile and hemodynamically stable. Laboratory evaluation revealed a normal white blood cell count. D-dimer was mildly elevated to 0.82. Chemistry profile was notable for a potassium of 3.4. CTA chest showed no evidence for pulmonary embolism. There was evidence of a focal consolidation in the right lower lobe. The patient was subsequently placed on supplemental IV fluids, remdesivir, Decadron, antimicrobials and Lovenox. She was admitted to the hospital for further management. [facility] Medical History Asthma Hypothyroid Polycystic ovarian disease Pulmonary embolus Home Medications levothyroxine 112 mcg PO DAILY 03/29/13 [History Last Taken 01/13/15] metformin 500 mg PO BIDCM 03/29/13 [History Last Taken 01/13/15] montelukast 10 mg PO DAILY 02/09/16 [History Last Taken Unknown] albuterol sulfate 2.5 mg INHALATION Q4H PRN PRN 03/25/17 [History Last Taken Unknown] fexofenadine-pseudoephedrine 1 ea PO BID 11/22/19 [History Last Taken Unknown] Allergy/AdvReac Type Severity Reaction Status Date / Time No Known Allergies Allergy Verified 08/18/20 07:20 Social History household members: spouse and children Smoking Status: Never smoker alcohol intake: current alcohol intake frequency: holidays/special occasions only substance use type: does not use ROS Constitutional Constitutional: Reports chills, fatigue and fever(s) Eyes Eyes: Denies blurry vision or change in vision ENT HEENT: Reports headache(s); Denies dizziness, epistaxis or loss taste/smell Cardiovascular Cardiovascular: Reports dyspnea; Denies chest pain Respiratory/Chest Respiratory/Chest: Reports cough, dyspnea and hemoptysis; Denies chest tightness Gastrointestinal Gastrointestinal: Denies abdominal pain, diarrhea, nausea or vomiting Genitourinary Genitourinary: Denies difficulty urinating Musculoskeletal Musculoskeletal: Reports arthralgias and myalgias Integumentary Integumentary: Denies lesions, rash or skin ulcer Neurologic Neurologic: Denies abnormal gait or abnormal speech Psychiatric Psychiatric: Denies anxiety or depression Endocrine Endocrinology: Reports fatigue Hematologic/Lymphatic Hematologic/Lymphatic: Denies easy bleeding or easy bruising Physical Exam Const alert and no apparent distress General Appearance: cooperative HEENT normocephalic, head/scalp atraumatic and moist oral mucous membranes Eyes PERRL, EOMs intact bilaterally and conjunctivae normal Neck supple General: trachea midline Resp no use of accessory muscles Auscultation: diminished lung sounds; Negative for rales, rhonchi or wheezes Cardio regular rate and regular rhythm GI normal to inspection, nondistended, normoactive bowel sounds Extremity no clubbing, cyanosis or edema Skin no rashes or lesions noted Neuro CN's II-XII intact bilaterally and moves all extremities Psych cooperative and affect normal Lab / Micro Data Result Diagrams: 08/19/20 03:05 08/19/20 03:05 Labs: Laboratory Results - last 24 hr 08/18/20 08/18/20 08/18/20 07:45 07:45 07:45 WBC 4.5 RBC 4.60 Hgb 13.5 Hct 41.0 MCV 89.1 MCH 29.3 MCHC 32.9 RDW Std Deviation 45.8 H RDW Coeff of Evangelist 14.1 Plt Count 172 MPV 10.8 Immature Gran % (Auto) 0.700 Neut % (Auto) 68.0 Lymph % (Auto) 21.8 [place] % (Auto) 8.0 Eos % (Auto) 1.3 Baso % (Auto) 0.2 Absolute Neuts (auto) 3.1 Absolute Lymphs (auto) 0.98 Nucleated RBC % 0 D-Dimer Quant (PE/DVT) Sodium 140 Potassium 3.4 L Chloride 106 Carbon Dioxide 27.0 Anion Gap 7 BUN 15 Creatinine 0.90 Estim Creat Clear Calc 66.90 Est GFR (MDRD) Af Amer 83 Est GFR (MDRD) Non-Af 69 BUN/Creatinine Ratio 16.6 Glucose 97 Lactic Acid 1.3 Calcium 8.9 Total Bilirubin 0.60 AST 35 ALT 44 Alkaline Phosphatase 110 Troponin I < 0.015 B-Natriuretic Peptide Total Protein 7.9 Albumin 3.7 Globulin 4.2 Albumin/Globulin Ratio 0.9 Procalcitonin 08/18/20 08/18/20 08/18/20 07:45 07:45 07:45 WBC RBC Hgb Hct MCV MCH MCHC RDW Std Deviation RDW Coeff of Evangelist Plt Count MPV Immature Gran % (Auto) Neut % (Auto) Lymph % (Auto) [place] % (Auto) Eos % (Auto) Baso % (Auto) Absolute Neuts (auto) Absolute Lymphs (auto) Nucleated RBC % D-Dimer Quant (PE/DVT) 0.82 H* Sodium Potassium Chloride Carbon Dioxide Anion Gap BUN Creatinine Estim Creat Clear Calc Est GFR (MDRD) Af Amer Est GFR (MDRD) Non-Af BUN/Creatinine Ratio Glucose Lactic Acid Calcium Total Bilirubin AST ALT Alkaline Phosphatase Troponin I B-Natriuretic Peptide 3.7 Total Protein Albumin Globulin Albumin/Globulin Ratio Procalcitonin 0.06 Micro: Microbiology 08/18/20 07:50 SARS-CoV-2 Antigen (Rapid) - Final Interface Orders Rhythm Strip Rhythm Strip: Sinus Rhythm Rate: 80 Ectopy: None Radiology Impression Chest CTA 08/18/20 07:29 IMPRESSION: No evidence of pulmonary embolism. Consolidation in the right lower lobe with minimal increased markings in the left infrahilar region as well as in the posterior aspect of the right upper lobe. Electronically Signed: Selvin Herrmann MD at 9:24 EDT , Service support , Charges/Coding Visit Charges Inpatient E&M: 19866 Init Hosp L3
--- NOTE | 2020-08-18 14:40 | CASEMGMT ---
NESSA PARRISH Assessment: RN SHIVANI phone pt room for initial transition planning/care coordination assessment. NESSA PARRISH introduced self and role at [facility], pt voices understanding and consents to assessment. Pt is A/O x4 and answers all questions appropriately at this time. Care providers, pharmacy, and demographics verified/updated. Admitting Dx: covid 19 infection, RLL pna PCP:[facility] Specialists:francisco Morales Preferred Pharmacy: [facility] Insurance: [employer] Prescription Benefit: yes LW/HPOA: Pt states she has a LW/DPOA and her DPOA is her Francisco Quispe LNOK: Francisco Quispe, Living Arrangements: Pt lives with in a two story house with no steps to enter. Pt is I with ADL's and denies concerns at home. Transportation: Pt drives self and denies issues with transportation. DME/HHC/SNF: Pt denies having any DME, hx of HHC or SNF stays. Pt states no concerns with going home at time of dc. Patient was provided a list of HHC providers including quality and resource use data and consistent with the patient?s preferred geographic region, medical needs, and insurance network should she need O2 upon dc. The patient?s preferred provider is [facility]. Pt states no further concerns/needs. CM to follow. Advised pt to ask CM if any further question/concerns/needs arise, voices understanding. Pt Goal: Home Plan: Home
[2020-08-18 16:11] LABS: Bedside Glucose 136 mg/dL (70-110)
[2020-08-18] MEDS: guaiFENesin 10 ML UDC (200MG/10ML) PO ×2 (16:18→21:07)
[2020-08-18] MEDS: metFORMIN HCl 500 MG Tablet PO (17:38)
[2020-08-18] MEDS: Ondansetron 4 MG/2 ML Vial IV (21:07)
[2020-08-18 23:00] LABS: Bedside Glucose 104 mg/dL (70-110)
[2020-08-19] VITALS (17 sets, daily range): BP systolic 125–149; BP diastolic 81–92; PULSE 54–107; RESP 14–24; TEMP 36.8–37.1; O2SAT 92–97
[2020-08-19] MEDS: Ipratropium/Albuterol Sulfate 3 ML AMPUL.NEB INHALATION ×6 (02:47→22:39)
[2020-08-19] MEDS: Acetaminophen 325 MG Tablet 650 MG PO ×4 (03:00→22:35)
[2020-08-19] MEDS: guaiFENesin 10 ML UDC (200MG/10ML) PO ×4 (03:00→20:34)
[2020-08-19 03:15] LABS: Absolute Lymphocyte Count 1.33 X10^3/uL (0.83-4.51); Absolute Neutrophil Count 3.2 X10^3/uL (2.0-7.7); Basophil# 0.01 X10^3/uL; Basophil% 0.2 % (0-1); Hematocrit 37.6 % (37-47); Hemoglobin 12.3 g/dL (12.0-15.0); Lymphocyte # 1.33 X10^3/ul (0.83-4.51); Lymphocyte % 27.4 % (19-41); Mean Corp Hgb Conc 32.7 g/dL (32-36); Mean Corpuscular Volume 88.7 fL (81-99); Monocyte# 0.26 X10^3/uL; Monocyte% 5.3 % (0-10); NRBC Flagged by Analyzer 0 % (0-5); Neutrophil # 3.23 X10^3/uL (2.7-7.7); Neutrophil % 66.5 % (47-70); Platelet Count 182 K/mm3 (150-450); RBC Distribution Width CV 14.2 % (11.6-14.6); RBC Distribution Width SD 46.1 fl (35.1-43.9); Red Blood Count 4.24 M/mm3 (4.2-5.4); White Blood Count 4.9 K/mm3 (4.4-11.0)
[2020-08-19 03:33] LABS: ALB/GLOB Ratio 0.8 RATIO (0.9-2.4); AST(SGOT) 29 U/L (15-37); Alanine Aminotransfer ALT/SGPT 40 U/L (13-56); Albumin, Serum 3.3 g/dL (3.2-5.0); Alkaline Phosphatase 100 U/L (45-117); Anion Gap 8 (5-15); BUN 9 mg/dL (7-18); BUN/Creat Ratio 10.7 RATIO (10-20); Calcium,Total 8.4 mg/dL (8.5-10.1); Chloride 110 mmol/L (98-107); Creatinine, Serum 0.84 mg/dL (0.55-1.02); EST Glomerular Filtration Rate 75 mL/min (>60); Est Glom Filt Rate - Afr Amer 91 mL/min (>60); Estimated Creatinine Clearance 71.67 ml/min; Globulin 3.9 g/dL (2.2-4.2); Glucose 97 mg/dL (74-106); Potassium 3.6 mmol/L (3.5-5.1); Protein, Total 7.2 g/dL (6.4-8.2); Sodium Level 141 mmol/L (136-145)
[2020-08-19] MEDS: 0.9% Normal Saline 1,000 ML 125 ML IV ×2 (04:58→16:38)
[2020-08-19] MEDS: Levothyroxine 112 MCG Tablet PO (04:58)
--- NOTE | 2020-08-19 06:07 | PCM.PN.INT ---
Assessment & Plan Assessment/Plan (1) COVID-19 virus infection: (2) Asthma: PLAN: RECOMMENDATIONS: 1. Continue remdesivir. Monitor liver and renal function accordingly. 2. Continue Decadron to complete 10-day treatment course. 3. Continue prophylactic Lovenox. 4. Encourage incentive spirometer use and mobilize patient as tolerated. 5. Continue empiric antimicrobials to complete 7-day treatment course. 6. Continue bronchodilator therapy. IMPRESSIONS: 1. Acute hypoxemic respiratory insufficiency secondary to COVID-19 pneumonia Plan to continue current supportive measures including supplemental oxygen, as needed, to maintain saturations at or above 90%. The patient has been started on remdesivir, which will be continued to complete a 5-day treatment course. Plan to continue Decadron to complete 10-day treatment course. We will continue to monitor liver and renal function. CTA chest showed no evidence for pulmonary embolism. Therefore, prophylactic Lovenox can be continued. Given dense consolidation noted on chest imaging, it is reasonable to continue empiric antimicrobials as well to complete 7-day treatment course, should the patient have a superimposed bacterial pneumonia as well. Continue bronchodilator therapy. 2. Self-reported history of asthma/history of pulmonary embolism/hypertension/hypothyroidism Complicates care, management, recovery and prognosis. The patient is not currently on a maintenance inhaler regimen at her baseline. She only utilizes albuterol on an as-needed basis. Aerosolized bronchodilators will be continued while the patient is admitted to the hospital. Continue home medications as indicated. This note was generated with [employer] dictation software. It may contain incorrect words, spelling, and punctuation that were not noted in checking the note before signing. Subjective Subjective The patient was seen and examined at the bedside this morning. Events from the last 24 hours have been reviewed. The patient is currently afebrile, hemodynamically stable and maintaining appropriate oxygen saturations on room air. The patient is currently documented to be overall net +3.3 L for the hospital admission. She remains on remdesivir, Decadron, Lovenox and antimicrobials. Liver and renal function are stable. The patient remains concerned about the possibility of pulmonary embolism. She does continue to have frequent paroxysms of coughing. Objective Data Objective Data The patient's most recent lab work, culture data and imaging studies have all been personally reviewed. Vital Signs: Vital Signs Temp Pulse Resp BP Pulse Ox 98.2 F 76 20 H 146/92 H 95 08/19/20 02:56 08/19/20 02:56 08/19/20 02:56 08/19/20 02:56 08/19/20 02:56 Oxygen Flow Rate (L/min) 2 Oxygen Delivery Method Room Air Weight: 225 lb Body Mass Index (BMI) 36.3 Intake & Output: Intake and Output for Last 24 Hours 08/17/20 08/18/20 08/19/20 23:59 23:59 23:59 Intake Total 2343.75 / 2343.75 979.17 / 979.17 Balance 2343.75 / 2343.75 979.17 / 979.17 Lab / Micro Data Attestation: I reviewed the patient's lab results. Result Diagrams: 08/19/20 03:05 08/20/20 07:10 Labs: Laboratory Results - last 24 hr 08/18/20 08/18/20 08/18/20 07:45 07:45 07:45 WBC 4.5 RBC 4.60 Hgb 13.5 Hct 41.0 MCV 89.1 MCH 29.3 MCHC 32.9 RDW Std Deviation 45.8 H RDW Coeff of Evangelist 14.1 Plt Count 172 MPV 10.8 Immature Gran % (Auto) 0.700 Neut % (Auto) 68.0 Lymph % (Auto) 21.8 [place] % (Auto) 8.0 Eos % (Auto) 1.3 Baso % (Auto) 0.2 Absolute Neuts (auto) 3.1 Absolute Lymphs (auto) 0.98 Nucleated RBC % 0 D-Dimer Quant (PE/DVT) Sodium 140 Potassium 3.4 L Chloride 106 Carbon Dioxide 27.0 Anion Gap 7 BUN 15 Creatinine 0.90 Estim Creat Clear Calc 66.90 Est GFR (MDRD) Af Amer 83 Est GFR (MDRD) Non-Af 69 BUN/Creatinine Ratio 16.6 Glucose 97 Lactic Acid 1.3 Calcium 8.9 Total Bilirubin 0.60 AST 35 ALT 44 Alkaline Phosphatase 110 Troponin I < 0.015 B-Natriuretic Peptide Total Protein 7.9 Albumin 3.7 Globulin 4.2 Albumin/Globulin Ratio 0.9 Procalcitonin POC Glucose 08/18/20 08/18/20 08/18/20 07:45 07:45 07:45 WBC RBC Hgb Hct MCV MCH MCHC RDW Std Deviation RDW Coeff of Evangelist Plt Count MPV Immature Gran % (Auto) Neut % (Auto) Lymph % (Auto) [place] % (Auto) Eos % (Auto) Baso % (Auto) Absolute Neuts (auto) Absolute Lymphs (auto) Nucleated RBC % D-Dimer Quant (PE/DVT) 0.82 H* Sodium Potassium Chloride Carbon Dioxide Anion Gap BUN Creatinine Estim Creat Clear Calc Est GFR (MDRD) Af Amer Est GFR (MDRD) Non-Af BUN/Creatinine Ratio Glucose Lactic Acid Calcium Total Bilirubin AST ALT Alkaline Phosphatase Troponin I B-Natriuretic Peptide 3.7 Total Protein Albumin Globulin Albumin/Globulin Ratio Procalcitonin 0.06 POC Glucose 08/18/20 08/18/20 08/19/20 16:01 21:04 03:05 WBC 4.9 RBC 4.24 Hgb 12.3 Hct 37.6 MCV 88.7 MCH 29.0 MCHC 32.7 RDW Std Deviation 46.1 H RDW Coeff of Evangelist 14.2 Plt Count 182 MPV 11.0 Immature Gran % (Auto) 0.600 Neut % (Auto) 66.5 Lymph % (Auto) 27.4 [place] % (Auto) 5.3 Eos % (Auto) 0.0 Baso % (Auto) 0.2 Absolute Neuts (auto) 3.2 Absolute Lymphs (auto) 1.33 Nucleated RBC % 0 D-Dimer Quant (PE/DVT) Sodium Potassium Chloride Carbon Dioxide Anion Gap BUN Creatinine Estim Creat Clear Calc Est GFR (MDRD) Af Amer Est GFR (MDRD) Non-Af BUN/Creatinine Ratio Glucose Lactic Acid Calcium Total Bilirubin AST ALT Alkaline Phosphatase Troponin I B-Natriuretic Peptide Total Protein Albumin Globulin Albumin/Globulin Ratio Procalcitonin POC Glucose 136 H 104 08/19/20 03:05 WBC RBC Hgb Hct MCV MCH MCHC RDW Std Deviation RDW Coeff of Evangelist Plt Count MPV Immature Gran % (Auto) Neut % (Auto) Lymph % (Auto) [place] % (Auto) Eos % (Auto) Baso % (Auto) Absolute Neuts (auto) Absolute Lymphs (auto) Nucleated RBC % D-Dimer Quant (PE/DVT) Sodium 141 Potassium 3.6 Chloride 110 H Carbon Dioxide 23.0 Anion Gap 8 BUN 9 Creatinine 0.84 Estim Creat Clear Calc 71.67 Est GFR (MDRD) Af Amer 91 Est GFR (MDRD) Non-Af 75 BUN/Creatinine Ratio 10.7 Glucose 97 Lactic Acid Calcium 8.4 L Total Bilirubin 0.40 AST 29 ALT 40 Alkaline Phosphatase 100 Troponin I B-Natriuretic Peptide Total Protein 7.2 Albumin 3.3 Globulin 3.9 Albumin/Globulin Ratio 0.8 L Procalcitonin POC Glucose Micro: Microbiology 08/18/20 07:50 Interface Orders SARS-CoV-2 Antigen (Rapid) - Final Radiography Diagnostic Testing: Radiology Impression Chest CTA 08/18/20 07:29 IMPRESSION: No evidence of pulmonary embolism. Consolidation in the right lower lobe with minimal increased markings in the left infrahilar region as well as in the posterior aspect of the right upper lobe. Electronically Signed: Selvin Herrmann MD at 9:24 EDT , Service support , Rhythm Strip Rhythm Strip: Sinus Rhythm Rate: 80 Ectopy: None Physical Exam Const alert and no apparent distress General Appearance: cooperative HEENT normocephalic, head/scalp atraumatic and moist oral mucous membranes Eyes PERRL, EOMs intact bilaterally and conjunctivae normal Neck supple General: trachea midline Resp no use of accessory muscles Resp Narrative: Frequent paroxysms of coughing Auscultation: wheezes and diminished lung sounds; Negative for rales or rhonchi Cardio regular rate and regular rhythm GI normal to inspection, nondistended, normoactive bowel sounds Extremity no clubbing, cyanosis or edema Skin no rashes or lesions noted Neuro CN's II-XII intact bilaterally and moves all extremities Psych cooperative Mood & Affect: anxious Charges/Coding Visit Charges Inpatient E&M: 68188 Subs Hosp L2
[2020-08-19] MEDS: Enoxaparin 40 MG/0.4 ML Syringe SC (08:40)
[2020-08-19] MEDS: dexAMETHasone 10 MG/ML Vial 6 MG IV (08:40)
[2020-08-19] MEDS: metFORMIN HCl 500 MG Tablet PO ×2 (08:41→16:35)
[2020-08-19] MEDS: Loratadine 10 MG Tablet PO (08:41)
[2020-08-19] MEDS: Montelukast 10 MG Tablet PO (08:41)
--- NOTE | 2020-08-19 09:51 | PN.HOSP_ITS ---
Subjective Subjective Patient seen and examined. She still feels weak and lethargic. However she is on room air. She still coughing quite a bit but she is not coughing up anything. She has remained hemodynamically stable. Objective Data Objective Data Vital Signs: Vital Signs Temp Pulse Resp BP Pulse Ox 98.7 F 68 15 149/82 H 93 08/19/20 08:51 08/19/20 08:51 08/19/20 08:51 08/19/20 08:51 08/19/20 08:51 Oxygen Flow Rate (L/min) 2 Oxygen Delivery Method Room Air Weight: 225 lb Body Mass Index (BMI) 36.3 Intake & Output: Intake and Output for Last 24 Hours 08/17/20 08/18/20 08/19/20 23:59 23:59 23:59 Intake Total 2343.75 / 2343.75 979.17 / 979.17 Balance 2343.75 / 2343.75 979.17 / 979.17 Lab / Micro Data Result Diagrams: 08/19/20 03:05 08/19/20 03:05 Labs: Laboratory Results - last 24 hr 08/18/20 08/18/20 08/18/20 07:45 07:45 07:45 WBC RBC Hgb Hct MCV MCH MCHC RDW Std Deviation RDW Coeff of Evangelist Plt Count MPV Immature Gran % (Auto) Neut % (Auto) Lymph % (Auto) [place] % (Auto) Eos % (Auto) Baso % (Auto) Absolute Neuts (auto) Absolute Lymphs (auto) Nucleated RBC % D-Dimer Quant (PE/DVT) 0.82 H* Sodium Potassium Chloride Carbon Dioxide Anion Gap BUN Creatinine Estim Creat Clear Calc Est GFR (MDRD) Af Amer Est GFR (MDRD) Non-Af BUN/Creatinine Ratio Glucose Calcium Total Bilirubin AST ALT Alkaline Phosphatase B-Natriuretic Peptide 3.7 Total Protein Albumin Globulin Albumin/Globulin Ratio Procalcitonin 0.06 POC Glucose 08/18/20 08/18/20 08/19/20 16:01 21:04 03:05 WBC 4.9 RBC 4.24 Hgb 12.3 Hct 37.6 MCV 88.7 MCH 29.0 MCHC 32.7 RDW Std Deviation 46.1 H RDW Coeff of Evangelist 14.2 Plt Count 182 MPV 11.0 Immature Gran % (Auto) 0.600 Neut % (Auto) 66.5 Lymph % (Auto) 27.4 [place] % (Auto) 5.3 Eos % (Auto) 0.0 Baso % (Auto) 0.2 Absolute Neuts (auto) 3.2 Absolute Lymphs (auto) 1.33 Nucleated RBC % 0 D-Dimer Quant (PE/DVT) Sodium Potassium Chloride Carbon Dioxide Anion Gap BUN Creatinine Estim Creat Clear Calc Est GFR (MDRD) Af Amer Est GFR (MDRD) Non-Af BUN/Creatinine Ratio Glucose Calcium Total Bilirubin AST ALT Alkaline Phosphatase B-Natriuretic Peptide Total Protein Albumin Globulin Albumin/Globulin Ratio Procalcitonin POC Glucose 136 H 104 08/19/20 03:05 WBC RBC Hgb Hct MCV MCH MCHC RDW Std Deviation RDW Coeff of Evangelist Plt Count MPV Immature Gran % (Auto) Neut % (Auto) Lymph % (Auto) [place] % (Auto) Eos % (Auto) Baso % (Auto) Absolute Neuts (auto) Absolute Lymphs (auto) Nucleated RBC % D-Dimer Quant (PE/DVT) Sodium 141 Potassium 3.6 Chloride 110 H Carbon Dioxide 23.0 Anion Gap 8 BUN 9 Creatinine 0.84 Estim Creat Clear Calc 71.67 Est GFR (MDRD) Af Amer 91 Est GFR (MDRD) Non-Af 75 BUN/Creatinine Ratio 10.7 Glucose 97 Calcium 8.4 L Total Bilirubin 0.40 AST 29 ALT 40 Alkaline Phosphatase 100 B-Natriuretic Peptide Total Protein 7.2 Albumin 3.3 Globulin 3.9 Albumin/Globulin Ratio 0.8 L Procalcitonin POC Glucose Micro: Microbiology 08/18/20 07:50 Interface Orders SARS-CoV-2 Antigen (Rapid) - Final Rhythm Strip Rhythm Strip: Sinus Rhythm Rate: 80 Ectopy: None Physical Exam Const alert, oriented x3 and no apparent distress General Appearance: cooperative Exam Limitations: no limitations Nutritional Appearance: obese HEENT normocephalic and head/scalp atraumatic Head and Scalp: normocephalic Eyes PERRL and EOMs intact bilaterally Pupil: sluggish Neck supple and no JVD Lymph Lymphatic: no lymphadenopathy noted Resp Resp Narrative: diminished breath sounds bibasally, coarse crackles in right mid and lower lung fernandez. On room air. Cardio regular rate, regular rhythm, S1 normal heart sound, S2 normal heart sound and no murmurs GI normal to inspection, nondistended, normoactive bowel sounds, soft to palpation, non-tender and non-distended Extremity normal capillary refill and no clubbing, cyanosis or edema General Extremity: no tenderness to palpation of joints or extremities Peripheral Pulses: Yes pulses 2+ throughout Skin no rashes or lesions noted General Skin Exam: turgor normal Rashes: no rashes Neuro oriented x3, CN's II-XII intact bilaterally, moves all extremities and deep tendon reflexes 2+ bilaterally Sensorium / Orientation: awake and alert Motor Exam: strength 5/5 throughout Psych affect normal Assessment & Plan Assessment/Plan (1) COVID-19 virus infection: (2) Pneumonia: PLAN: #COVID 19 infection * on remdesivir and decadron * breathing treatment with bronchodilators * titrate oxygen to maintain sats >90% * ID and pulmonology on board * * #RIght lower lobe pneumonia in setting of covid 19 infection * CTA chest showed dense right lower lobe infiltrate, and no evidence of PE * blood culture pending * IV ceftriaxone and azithromycin * cough is not productive, so sputum sample not obtained yet * #Hypokalemia: resolved, K is 3.6. #History of asthma: * On breathing treatment with bronchodilators. * Titrate oxygen to maintain sats>90% #History of PE: stable #Benign essential hypertension #Hypothyroidism: on synthroid DVT prophylaxis: lovenox Code status: full code * Charges/Coding Visit Charges Inpatient E&M: 10812 Subs Hosp L3
[2020-08-19] MEDS: Ceftriaxone 1 GM/50 ML BAG IV (10:16)
[2020-08-20] VITALS (9 sets, daily range): BP systolic 137–153; BP diastolic 71–93; PULSE 56–74; RESP 15–18; TEMP 36.7–36.9; O2SAT 94–100
[2020-08-20] MEDS: 0.9% Normal Saline 1,000 ML 125 ML IV (00:44)
[2020-08-20] MEDS: Ipratropium/Albuterol Sulfate 3 ML AMPUL.NEB INHALATION ×3 (02:30→11:59)
[2020-08-20] MEDS: Levothyroxine 112 MCG Tablet PO (06:31)
[2020-08-20] MEDS: Acetaminophen 325 MG Tablet 650 MG PO (06:35)
[2020-08-20] MEDS: guaiFENesin 10 ML UDC (200MG/10ML) PO (06:36)
--- NOTE | 2020-08-20 06:50 | PN.CC_ITS ---
Assessment & Plan Assessment/Plan (1) COVID-19 virus infection: (2) Asthma: PLAN: RECOMMENDATIONS: 1. Continue remdesivir. Monitor liver and renal function accordingly. 2. Continue Decadron to complete 10-day treatment course. 3. Continue prophylactic Lovenox. 4. Stop continuous IV fluids. 5. Transition patient to Levaquin to complete 7-day treatment course. 6. Encourage incentive spirometer use and mobilize patient as tolerated. 7. Continue bronchodilator therapy. 8. Given the patient's overall clinical stability and appropriate oxygen saturations on room air, she could be discharged home to complete her treatment course of Decadron. Will sign off from a pulmonary/ critical care perspective. Please call with any additional questions. IMPRESSIONS: 1. Acute hypoxemic respiratory insufficiency secondary to COVID-19 pneumonia Plan to continue current supportive measures including antimicrobials, remdesivi r and Decadron as ordered. The patient continues to maintain appropriate oxygen saturations on room air. CTA chest showed no evidence for pulmonary embolism. Therefore, prophylactic Lovenox can be continued. Given dense consolidation noted on chest imaging, it is reasonable to continue empiric antimicrobials as well to complete 7-day treatment course, should the patient have a superimposed bacterial pneumonia as well. Continue bronchodilator therapy. 2. Self-reported history of asthma/history of pulmonary embolism/hypertension/hypothyroidism Complicates care, management, recovery and prognosis. The patient is not currently on a maintenance inhaler regimen at her baseline. She only utilizes albuterol on an as-needed basis. Aerosolized bronchodilators will be continued while the patient is admitted to the hospital. Continue home medications as indicated. This note was generated with [employer] dictation software. It may contain incorrect words, spelling, and punctuation that were not noted in checking the note before signing. Subjective Subjective The patient was seen and examined at the bedside this morning. Events from the last 24 hours have been reviewed. The patient is currently afebrile, hemodynamically stable and maintaining appropriate oxygen saturations on room a ir. The patient is currently documented to be overall net +6.5 L for the hospital admission. She remains on remdesivir, Decadron, Lovenox and antimicrobials. She continues to report shortness of breath and frequent coughing. Objective Data Objective Data The patient's most recent lab work, culture data and imaging studies have all been personally reviewed. Vital Signs: Vital Signs Temp Pulse Resp BP Pulse Ox 98.5 F 64 16 125/81 H 94 08/19/20 21:00 08/20/20 03:16 08/20/20 02:31 08/19/20 21:00 08/20/20 01:50 Oxygen Flow Rate (L/min) 2 Oxygen Delivery Method Room Air Weight: 225 lb Body Mass Index (BMI) 36.3 Intake & Output: Intake and Output for Last 24 Hours 08/18/20 08/19/20 08/20/20 23:59 23:59 23:59 Intake Total 2343.75 / 2343.75 3006.67 / 3228.67 1222 / 1222 Balance 2343.75 / 2343.75 3006.67 / 3228.67 1222 / 1222 Lab / Micro Data Attestation: I reviewed the patient's lab results. Result Diagrams: 08/19/20 03:05 08/19/20 03:05 Micro: Microbiology 08/19/20 11:50 Urine, Clean Catch Legionella Antigen - Final 08/19/20 11:50 Urine, Clean Catch Streptococcus pneumoniae Antigen (M - Final 08/18/20 07:50 Interface Orders SARS-CoV-2 Antigen (Rapid) - Final Rhythm Strip Rhythm Strip: Sinus Rhythm Rate: 80 Ectopy: None Physical Exam Const alert and no apparent distress General Appearance: cooperative HEENT normocephalic, head/scalp atraumatic and moist oral mucous membranes Eyes PERRL, EOMs intact bilaterally and conjunctivae normal Neck supple General: trachea midline Resp no use of accessory muscles Resp Narrative: Frequent paroxysms of coughing Auscultation: diminished lung sounds; Negative for rales, rhonchi or wheezes Cardio regular rate and regular rhythm GI normal to inspection, nondistended, normoactive bowel sounds Extremity no clubbing, cyanosis or edema Skin no rashes or lesions noted Neuro CN's II-XII intact bilaterally and moves all extremities Psych cooperative Mood & Affect: anxious Charges/Coding Visit Charges Inpatient E&M: 32582 Subs Hosp L2
[2020-08-20 07:37] LABS: ALB/GLOB Ratio 0.9 RATIO (0.9-2.4); AST(SGOT) 32 U/L (15-37); Alanine Aminotransfer ALT/SGPT 34 U/L (13-56); Alkaline Phosphatase 83 U/L (45-117); Anion Gap 7 (5-15); BUN 13 mg/dL (7-18); Calcium,Total 8.4 mg/dL (8.5-10.1); Chloride 111 mmol/L (98-107); Creatinine, Serum 0.82 mg/dL (0.55-1.02); EST Glomerular Filtration Rate 78 mL/min (>60); Est Glom Filt Rate - Afr Amer 94 mL/min (>60); Estimated Creatinine Clearance 73.42 ml/min; Globulin 3.5 g/dL (2.2-4.2); Glucose 80 mg/dL (74-106); Potassium 3.2 mmol/L (3.5-5.1); Protein, Total 6.5 g/dL (6.4-8.2); Sodium Level 144 mmol/L (136-145)
[2020-08-20] MEDS: levoFLOXacin 750 MG Tablet PO (08:30)
[2020-08-20] MEDS: metFORMIN HCl 500 MG Tablet PO (08:30)
[2020-08-20] MEDS: Enoxaparin 40 MG/0.4 ML Syringe SC (08:31)
[2020-08-20] MEDS: dexAMETHasone 10 MG/ML Vial 6 MG IV (08:31)
[2020-08-20] MEDS: Montelukast 10 MG Tablet PO (08:31)
[2020-08-20] MEDS: Loratadine 10 MG Tablet PO (08:31)
--- NOTE | 2020-08-20 11:37 | DS.PCM_ITS ---
Providers Date of Admission: 08/18/20 Primary Care Physician: Dr. Inder Ramires III, MD Consultations 08/18/20 11:08 Consult: Infectious Disease Routine Consulting Provider: Juan St Reason for Consult: Covid-19 EMERGENT Consult: No Notified: Yes Date Notified:: 08/18/20 Time Notified: 09:49 Method of Notification: Text Consult: [employer]otive [employer] Coordinator / Pulmonary Medicine Routine Consulting Provider: [facility] Reason for Consult: Covid-19 EMERGENT Consult: No Notified: Yes Date Notified:: 08/18/20 Time Notified: 09:50 Method of Notification: Text Reason For Visit: COVID 19 INFECTION, RIGHT LOWER LOBE PNEUMONIA Diagnosis Discharge Diagnosis (1) COVID-19 virus infection: Status: Acute Code(s): U07.1 - COVID-19 (2) Asthma: Status: Chronic Code(s): J45.909 - Unspecified asthma, uncomplicated Medications at Discharge Home Medications levothyroxine 112 mcg PO DAILY 03/29/13 metformin 500 mg PO BIDCM 03/29/13 montelukast 10 mg PO DAILY 02/09/16 albuterol sulfate 2.5 mg INHALATION Q4H PRN PRN 03/25/17 fexofenadine-pseudoephedrine 1 ea PO BID 11/22/19 apixaban [Eliquis] 2.5 mg PO BID #28 tab 08/20/20 dexamethasone [Decadron] 6 mg PO DAILY #8 tab 08/20/20 levofloxacin 750 mg PO DAILY #7 tab 08/20/20 Hospital Course Operations None Procedures None Summary of Care Provided Minutes Spent on Discharge: 40 Hospital Course: NIKIA HUMPHREYS, is a 54 F with a PMH as outlined who presents with a complaint of shortness of breath, She was recently diagnosed with covid about a week ago. She presented with cough, shortness of breath and chest pain. She tested positive for COVID on August 10. She wasnt hypoxic the, so was discharged home. However, she has been progressively getting worse, with worsening shortness of breath, and cough. She says at home, her sats were between 86-92%. On admission in the ED, vitals were emp of 98.3F, with AR of 97, RR of 17 and she was saturating at 95% on room air. CBC showed wbc of 4.5, Hb of 13.5 and platelets of 172. CTA of the chest was negative for PE, but showed a dense right lower lobe infiltrate. SHe was admitted to be managed for covid 19 infection with superimposed pneumonia. Of note, patient states she has not gotten the Covid vaccine because of previous severe allergies and anaphylactic reaction to vaccines such as flu vaccine. She was started on remdesivir and Decadron and started on IV ceftriaxone and azithromycin. Patient remained on room air throughout her admission and her symptoms gradually improved. ID and p ulmonology were consulted. She remained stable and was discharged home on 08/20/2020. She was discharged on a 7-day course of p.o. levofloxacin and also discharged on p.o. Decadron to complete a 10-day course. She is to remain in self-isolation until 08/01/2020. She is to follow-up with her primary care doctor in 1 to 2 weeks. Of note, her D-dimer was also elevated on admission so she was discharged on p.o. Eliquis 2.5 mg twice daily for 14 days to serve as thromboembolism prophylaxis for Covid. Patient seen and examined prior to discharge. She complained of feeling a bit lethargic but otherwise review of systems was negative. Review of stents otherwise negative. Labs and vitals reviewed. Home medication reviewed and reconciled. Physical Exam Const alert, oriented x3 and no apparent distress General Appearance: cooperative and comfortable Exam Limitations: no limitations Nutritional Appearance: obese HEENT normocephalic and head/scalp atraumatic Eyes PERRL and EOMs intact bilaterally Pupil: sluggish Neck no lymphadenopathy, supple and no JVD Lymph Lymphatic: no lymphadenopathy noted Resp normal respiratory effort and no retractions Resp Narrative: few crackles in right lower lung field, no wheezing Cardio regular rate, regular rhythm, S1 normal heart sound, S2 normal heart sound and no murmurs GI normal to inspection, nondistended, normoactive bowel sounds, soft to palpation, non-tender and non-distended Extremity normal to inspection, full ROM, normal capillary refill and no clubbing, cyanosis or edema General Extremity: no tenderness to palpation of joints or extremities Skin no rashes or lesions noted General Skin Exam: turgor normal Rashes: no rashes Neuro oriented x3, CN's II-XII intact bilaterally, moves all extremities and deep tendon reflexes 2+ bilaterally Sensorium / Orientation: awake and alert Motor Exam: strength 5/5 throughout Psych affect normal ABG / Lab / Microbiology Data Result Diagrams: 08/19/20 03:05 08/20/20 07:10 Laboratory: Laboratory Results - last 24 hr 08/20/20 07:10 Sodium 144 Potassium 3.2 L Chloride 111 H Carbon Dioxide 26.0 Anion Gap 7 BUN 13 Creatinine 0.82 Estim Creat Clear Calc 73.42 Est GFR (MDRD) Af Amer 94 Est GFR (MDRD) Non-Af 78 BUN/Creatinine Ratio 16.0 Glucose 80 Calcium 8.4 L Total Bilirubin 0.40 AST 32 ALT 34 Alkaline Phosphatase 83 Total Protein 6.5 Albumin 3.0 L Globulin 3.5 Albumin/Globulin Ratio 0.9 Microbiology: Microbiology 08/18/20 08:00 Blood Culture - Preliminary Blood Culture (Wb) - Arm Right No growth in 48 hours. 08/18/20 07:45 Blood Culture - Preliminary Blood Culture (Wb) - Anticubital Left No growth in 48 hours. 08/19/20 11:50 Legionella Antigen - Final Urine, Clean Catch Streptococcus pneumoniae Antigen (M - Final Microbiology 08/18/20 08:00 Blood Culture (Wb) - Arm Right Blood Culture - Preliminary No growth in 48 hours. 08/18/20 07:45 Blood Culture (Wb) - Anticubital Left Blood Culture - Preliminary No growth in 48 hours. 08/19/20 11:50 Urine, Clean Catch Legionella Antigen - Final 08/19/20 11:50 Urine, Clean Catch Streptococcus pneumoniae Antigen (M - Final 08/18/20 07:50 Interface Orders SARS-CoV-2 Antigen (Rapid) - Final D/C Instructions Discharge Diet: 2000 mg Sodium Diet Discharge Activity: Return to Normal Activity Weight Bearing Status: Weight bearing as tolerated Call your doctor if you observe: Fever of 101 or Higher, Shortness of breath, Swelling in the ankles and Increased palpitations (irregular heartbeat) Additional Instructions: to remain in self isolation till 08/01/2020. Meaningful Use Info Meaningful Use Diagnoses (Choose all that apply): None applicable Discharge Plan Admission Admit Date/Time: 08/18/20 09:45 Primary Reason for Your Visit: covid 19 infection, superimposed community acquired pneumonia Attending Provider: Radha Williamson Primary Care Provider: Inder Ramires III Consulting Providers: Juan St ; Jake Romero ; [employer] ; Antoinette Alvarado FUNERAL PLANNING COUNSELOR Instructions Patient Instructions: Coronavirus Disease 2019 (COVID-19): Overview, Coronavirus Disease 2019 (COVID-19): Caring for Yourself or Others Discharge Orders/Prescriptions Prescriptions: New Eliquis 2.5 mg tablet 2.5 mg PO BID Qty: 28 RF: 0 levofloxacin 750 mg tablet 750 mg PO DAILY Qty: 7 RF: 0 dexamethasone [Decadron] 6 mg tablet 6 mg PO DAILY Qty: 8 RF: 0 Continued metformin 500 MG tablet 500 mg PO BIDCM RF: 0 levothyroxine 112 MCG tablet 112 mcg PO DAILY RF: 0 montelukast 10 MG tablet 10 mg PO DAILY RF: 0 albuterol sulfate 2.5 MG/3 ML solution for nebulization 2.5 mg inhalation Q4H PRN PRN (Reason: Sob &/Or Wheezing) RF: 0 fexofenadine-pseudoephedrine 1 EACH tablet extended release 12 hr 1 ea PO BID RF: 0 Referrals / Follow Up: Inder Ramires III, MD [Primary Care Provider] - Within 2 Weeks Disposition Disposition (needs filled in before D/C Order can be placed): Home, self care Charges/Coding Visit Charges Inpatient E&M: 16313 Disch Hosp
--- NOTE | 2020-08-21 10:26 | CASEMGMT ---
RN CM Discharge Follow Up Phone Call: LACE: 11` Strata: 3 Call Date: 08.21.20 Discharge Date: 08.20.20 Time of Call: 1026 Duration: <1 min Admitting Dx: BLU MA RN, CM attempted to complete follow up phone call after recent hospitalization. Left message on identified voicemail with return call information.
== END 2020-08-20 13:50 | disposition home or self-care (01) | DRG 177 ==
LOC: ED 08:00 → ICU 08-20 11:46
PROVIDERS: Internal Medicine Critical Care Medicine; Admitting Provider Student in an Organized Health Care Education/Training Program; Emergency Provider Emergency Medicine; PCP Family Medicine; Visit Provider Student in an Organized Health Care Education/Training Program
DX: U07.1 COVID-19 (principal); J12.82 Pneumonia due to coronavirus disease 2019; R09.02 Hypoxemia; Z86.711 Personal history of pulmonary embolism; E87.6 Hypokalemia; J45.909 Unspecified asthma, uncomplicated; I10 Essential (primary) hypertension; E03.9 Hypothyroidism, unspecified; R06.89 Other abnormalities of breathing; E66.9 Obesity, unspecified; Z68.36 Body mass index [BMI] 36.0-36.9, adult; Z79.899 Other long term (current) drug therapy; Z79.51 Long term (current) use of inhaled steroids
CPT/HCPCS: 71275; 80053; 82962; 83605; 83880; 84145; 84484; 85025; 85379; 87040; 87426; 87449; 93005; 94640; 99251; 99285; J7030; J7050; A4216; G0463; J2405

== ENCOUNTER → 2021-03-05 07:55 | Outpatient (CLI) | payer BC, SELFPAY ==
--- NOTE | 2021-03-05 07:58 | CT_ITS ---
STUDY: CT CHEST WITH CONTRAST REASON FOR EXAM: Female, 55 years old. HX OF PULMONARY EMBOLUS. Right hilar lymphadenopathy. RADIATION DOSAGE (If Supplied By Facility): CTDIvol = ( 17.53 ) mGy, DLP = ( 667.37 ) mGycm TECHNIQUE: Transaxial imaging was performed following intravenous administration of Isovue 300 100ml. Multiplanar coronal and sagittal images were reformatted. Individualized dose optimization techniques were used for this CT. COMPARISON: Comparison is made with prior study dated 08/18/2020. FINDINGS: Small bilateral benign-appearing axillary lymph nodes. The lungs are normal. There is no demonstrated pleural abnormality. Normal heart and pericardium. Normal mediastinum. Normal hilar regions. Normal enhanced pulmonary arteries. Normal aorta arch and descending thoracic aorta. Normal osseous structures. Diffuse fatty infiltration of the liver. CT/Chest WITH Contrast IMPRESSION: Diffuse fatty infiltration of the liver. Electronically Signed: Selvin Herrmann MD at 9:01 EST , Service support ,
== END ==
PROVIDERS: PCP Student in an Organized Health Care Education/Training Program; Referring Provider Internal Medicine Hematology & Oncology; Visit Provider Internal Medicine Hematology & Oncology
DX: Z86.711 Personal history of pulmonary embolism (principal)
CPT/HCPCS: 71260; Q9967

== ENCOUNTER → 2023-01-27 | Outpatient (CLI) | payer OTHER, SELFPAY ==
--- NOTE | 2023-01-27 19:06 | CT_ITS ---
EXAM: CT LEFT LOWER EXTREMITY WITHOUT INTRAVENOUS CONTRAST CLINICAL INDICATION: templating for left TKA TECHNIQUE: Helically acquired images were obtained of the left lower extremity without intravenous contrast. 2-D reformats were performed by the technologist. CTDIvol = ( 18.83 ) mGy, DLP = ( 2495.10 ) mGycm This CT exam was performed using one or more of the following dose reduction techniques: automated exposure control, adjustment of the mA and/or kV according to patient size, and/or use of iterative reconstruction technique. COMPARISON: No relevant prior studies available. FINDINGS: BONES/JOINTS: Severe tricompartmental osteoarthrosis of the knee with mild lateral subluxation of the patella as well as along the tibia. Moderate osteoarthrosis at the left hip. Lesser and greater trochanteric enthesopathy. Small suprapatellar joint effusion of the knee. No acute fracture. No sclerotic or destructive changes. SOFT TISSUES: Unremarkable. No soft tissue swelling or gas. No radiopaque foreign body. No masses or fluid collections involving the soft tissues. BLADDER: Decompressed appearance of the bladder. OTHER FINDINGS: No free fluid in the pelvis. CT/Extremity Lower without Contra IMPRESSION: Preoperative planning study. Severe tricompartmental osteoarthrosis of the knee with mild lateral subluxation of the tibia relative to the femur. Electronically Signed: Stanislav Villasenor MD at 23:12 EST ,
== END | disposition home or self-care (01) ==
PROVIDERS: PCP Student in an Organized Health Care Education/Training Program; Visit Provider Orthopaedic Surgery
DX: M17.12 Unilateral primary osteoarthritis, left knee (principal); Z96.652 Presence of left artificial knee joint
CPT/HCPCS: 73700

== ENCOUNTER 2023-02-18 16:51 | Observation (INO) | payer OTHER, SELFPAY ==
[2023-02-10 07:58] LABS: Absolute Neutrophil Count 2.5 X10^3/uL (2.0-7.7); Basophil# 0.02 X10^3/uL; Basophil% 0.4 % (0-1); Eosinophil# 0.16 X10^3/uL; Eosinophils% 3.3 % (0-5); Hematocrit 42.7 % (37-47); Hemoglobin 14.1 g/dL (12.0-15.0); Lymphocyte % 33.3 % (19-41); Mean Corpuscular Hgb 29.9 pg (27.0-32.0); Mean Corpuscular Volume 90.5 fL (81-99); Mean Platelet Vol. 10.5 fl (6.2-12.0); Monocyte# 0.47 X10^3/uL; Monocyte% 9.8 % (0-10); NRBC Flagged by Analyzer 0 % (0-5); Neutrophil # 2.54 X10^3/uL (2.7-7.7); Platelet Count 205 K/mm3 (150-450); RBC Distribution Width CV 12.1 % (11.6-14.6); RBC Distribution Width SD 40.5 fl (35.1-43.9); Red Blood Count 4.72 M/mm3 (4.2-5.4); White Blood Count 4.8 K/mm3 (4.4-11.0)
[2023-02-10 08:10] LABS: International Normalized Ratio 0.9
[2023-02-10 08:11] LABS: Partial Thromboplast Time 26.6 Seconds (24.1-36.2)
[2023-02-10 08:32] LABS: Anion Gap 2 (5-15); BUN 14 mg/dL (7-18); BUN/Creat Ratio 18.7 RATIO (10-20); Calcium,Total 9.1 mg/dL (8.5-10.1); Chloride 109 mmol/L (98-107); Creatinine, Serum 0.75 mg/dL (0.55-1.02); EST Glomerular Filtration Rate 85 mL/min (>60); Est Glom Filt Rate - Afr Amer 103 mL/min (>60); Glucose 101 mg/dL (74-106); Magnesium 2.4 mg/dL (1.6-2.6); Potassium 4.4 mmol/L (3.5-5.1); Sodium Level 140 mmol/L (136-145); Thyroid Stim Hormone (TSH) 0.33 uIU/mL (0.358-3.74)
[2023-02-10 08:36] LABS: Hemoglobin A1c 5.4 % (3.8-5.6)
--- NOTE | 2023-02-10 12:37 | EKG12_ITS ---
Test Reason : PREOP Blood Pressure : / mmHG Vent. Rate : 078 BPM Atrial Rate : 078 BPM P-R Int : 140 ms QRS Dur : 086 ms QT Int : 394 ms P-R-T Axes : 044 012 027 degrees QTc Int : 449 ms Normal sinus rhythm Normal ECG Confirmed by SACHIN MILLS, LEO ([id number]), video effects editor REZA DESHPANDE ([id number]) on 02/11/2023 7:12:49 AM Referred By: SHANAI Confirmed By:LEO STEPHENSON MD
[2023-02-11 05:07] LABS: Fructosamine 214 umol/L (0-285)
[2023-02-18] VITALS (16 sets, daily range): BP systolic 98–166; BP diastolic 56–97; PULSE 73–94; RESP 10–18; TEMP 35.9–36.7; O2SAT 91–98; BMI 38.7
[2023-02-18] MEDS: Lactated Ringers 1,000 ML 15 ML IV (05:50)
[2023-02-18] MEDS: Magnesium 1 GM over 15 mins IV (05:55)
[2023-02-18] MEDS: Scopolamine 1mg/72hr Patch 1 PATCH TD (06:25)
[2023-02-18] MEDS: Acetaminophen 500 MG Tablet 1000 MG PO ×3 (06:26→21:26)
[2023-02-18] MEDS: Celecoxib 200 MG Capsule 400 MG PO (06:26)
[2023-02-18] MEDS: Gabapentin 600 MG Tablet PO (06:26)
[2023-02-18 06:40] LABS: Bedside Glucose 97 mg/dL (74-106)
[2023-02-18] MEDS: MethylPREDNISolone Acetate 40 MG/ML Vial (07:01)
--- NOTE | 2023-02-18 07:07 | PCM.HP.BLA ---
History and Physical Date of Admission: 02/18/23 [facility] [address] [place] [address] OFFICE VISIT Date of Service: 01/10/23 MR#: [id number] Acct: [id number] Name: NIKIA HUMPHREYS Rep #: [id number] : 1965 Provider: Dr. Lane Hall DO Age/Sex: 57/F [place] [facility] [place] Status: Signed Intake Vital Signs 10/18/2312:44 01/10/2311:34 Height 5 ft 6 in 5 ft 6 in Weight: 230 lb 242 lb BMI 37.1 39.0 Intake Visit Reasons: KNEE Chief Complaint: left knee Accompanied by: Self Allergies Seasonal Allergies: Uncoded Allergy (Mild, Verified 01/10/23 11:36) runny nose Medications levothyroxine 112 mcg tablet 112 mcg PO DAILY 03/29/13 [History Confirmed 01/10/23] montelukast 10 mg tablet 10 mg PO DAILY 02/09/16 [History Confirmed 01/10/23] albuterol sulfate 2.5 mg/3 mL (0.083 %) solution for nebulization 2.5 mg inhalation Q4H PRN PRN Sob &/Or Wheezing 03/25/17 [History Confirmed 01/10/23] fluticasone 250 mcg-salmeterol 50 mcg/dose blistr powdr for inhalation 1 inh inhalation 10/18/22 [History Confirmed 01/10/23] furosemide 20 mg tablet mg PO 10/18/22 [History Confirmed 01/10/23] pantoprazole 40 mg tablet,delayed release mg PO 10/18/22 [History Confirmed 01/10/23] PFSH Medical History (Updated 01/10/23 @ 12:[address] Hall DO) Asthma Cough with hemoptysis COVID-19 virus infection History of pulmonary embolism Hypothyroid Osteoarthritis of left knee Pneumonia Polycystic ovarian disease Pulmonary embolus Surgical History History of arthroscopy of left shoulder History of back surgery History of surgery on wrist Hx of section Hx of elbow surgery Hx of foot surgery Social History household members: spouse and children Smoking Status: Never smoker alcohol intake: current alcohol intake frequency: holidays/special occasions only substance use type: does not use HPI KNEE Details: This documentation accurately reflects the service provided and the decisions made by me, Dr. Lane Hall, DO 01/10/23 0757. Part of today?s visit was documented by [ ], acting as scribe. NIKIA HUMPHREYS is a 57 year old F here today for possibility of having left knee surgery. Pt states that she has been having left knee pain since last June 2021. No prior injury or surgery. Pt has tried steroid injections with [facility] and Dr. Holguin's PA .Pt has tried braces that helps with stability knee mahesh . Pt states that the pain is dull and achy all the time but can be sharp when bend it wrong. Pt states that the pain is medial and at the posterior of the knee. Pt has been taking Ibuprofen and Tylenol for the pain. Pt has had a history of PE and pt has been off anticoagulation for 2 years. pt has done Physical therapy in June 2021 with home exercised on her own since. Ortho Exam General General: Yes no acute distress (BMI 39.0) Neurologic: Yes alert and Yes oriented x3 Psychologic: Yes reasonable and appropriate Right Knee Patella Translation: 1 Left Knee Skin/Wound: No ecchymosis, No erythema and Yes swelling Homans Sign: No Knee ROM: Yes ROM-Extension -20 to 0 and No ROM-Flexion 0-140 (85) Examination: Yes med jt line tenderness and Yes Crepitus Stability: NML: Anterior Drawer, NML: Posterior Drawer, NML: Valgus 0, NML: Valgus 30, NML: Varus 0 and NML: Varus 30 Apprehension with Lateral Translation: No Patella Translation: 1 Patella Grind: Yes KNEE: no effusion, 2/4 pedal pulse, mild varicose veins Head: Normocephalic Atraumatic Chest: symmetrical rise, non-labored breathing, no audible wheeze Abdomen: no guarding, non-rigid Supplemental Info 10/18/2022 x-ray left knee she does have moderate to severe medial joint space narrowing and spurring moderate to severe patellofemoral arthrosis Coding Level of Care Code Off vis,est,level 4 Diagnoses Primary osteoarthritis of left knee M17.12 Osteoarthritis type: primary Assessment and Plan Assessment and Plan (1) Osteoarthritis of left knee: Status: Acute Qualifiers: Osteoarthritis type: primary Qualified Code(s): M17.12 - Unilateral primary osteoarthritis, left knee Plan reviewed Xrays of patient's left knee. Personally reviewed Xrays. There is no obvious fracture, dislocation, or lucency noted. She does have moderate knee arthrosis worse medial and patellofemoral compartments Thoroughly discussed surgical and nonsurgical options and risk benefits and alternatives of both Discussed total knee replacement in depth Risks, benefits and alternatives of surgery reviewed including but not limited to bleeding, infection, nerve, artery and/or tissue damage, fracture, VTE, mechanical feel of the knee, continued pain, stiffness and expected post-operative course numbness to the lateral knee is expected after surgery, same day surgery, Iovera treatment reviewed and she would like discussed recovery period, antibiotic for dental work pos op, importance of PO physical therapy considering her stiffness, with her history of pulmonary embolisms I would like to check if her PCP would like her to be on Eliquis for more than the typical 2 weeks 2.5 mg twice daily, in addition to standard medical clearance Tentative surgery date February 18, 2023 01/10/23 1222 <Electronically signed by Lane Hall DO> Date Lane Hall DO Cosigner Signature: Date (if applicable) I have examined the patient and the H&P has been reviewed. There are no clinical changes since date of exam.
[2023-02-18] MEDS: Cefazolin 2 GM in 0.9% Normal Saline (100mL Bag) 100 ML IV ×2 (07:25→12:43)
--- NOTE | 2023-02-18 07:30 | KNEE_PTH ---
PATIENT: NIKIA HUMPHREYS LOC: [facility] U#:[id number] AGE/SX: 57/F ROOM: IL318 RE02/18/[address]: Dr. Lane Hall DO : 1965 BED: 1 DIS: 02/19/2023 SPEC #: [id number] RECD: 02/18/23 10:48 STATUS: JOSE MAZARIEGOS #: [id number] DIXIE: 02/18/23 07:[address]: Lane Hall DEPT: SURGICAL PATHOLOGY RECD BY: Kristine Cardozo ENTERED: 02/18/23 11:54 SP TYPE: TOTAL KNEE OTHR DR: Dr. Chapito Lane, DO Tissues: Knee, NOS Procedures: Decalcification bone/plaque Surgery Specimen Level IV HEADER OPERATION: ERAS, left total knee replacement robotic arm assist PRE-OP DIAGNOSIS: Primary osteoarthritis of left knee TISSUE SUBMITTED: Left knee bone and tissue MICROSCOPIC DIAGNOSIS Bone and tissue, left knee, total knee replacement/resection: Pieces of bone with degenerative osteoarthritic changes. Fibroadipose tissue, fibroconnective tissue and reactive synovial tissue. SJ:florin 02/24/2023 MICROSCOPIC DESCRIPTION Slides are reviewed. GROSS DESCRIPTION Received is one container designated bone and soft tissue left knee. The specimen consists of multiple fragments of mckeon-yellow bone measuring in aggregate 14.0 x 11.5 x 2.0 cm. Also in the specimen container are multiple fragments of yellow-white soft tissue measuring in aggregate 5.0 x 4.0 x 0.9 cm. A number of bony fragments contain articular surfaces consistent with tibial plateau and femoral condyle and displaying prominent osteophyte formation, eburnation and bone erosion. Telephone Supervisor sections are submitted in two cassettes as follows: 1 - soft tissue, 2 - bone after decalcification. / AM:florin 02/18/2023 TC:5 CPT: 77754, 68623
[2023-02-18] MEDS: TXA 1000mg in NS100 100ml (IVPB at Incision) 660 MG IV (07:37)
[2023-02-18] MEDS: dexAMETHasone 10 MG/ML Vial IV (07:38)
[2023-02-18] MEDS: Epinephrine (1 mg/ml) 1 MG/ML VIAL (08:11)
[2023-02-18] MEDS: 0.9% Normal Saline (Pres. free 10 ML Vial (08:11)
[2023-02-18] MEDS: Bupivacaine 0.5% PF 10 ML VIAL (08:12)
[2023-02-18] MEDS: TXA 1000mg in NS100 100ml (IVPB at Closure) 660 MG IV (09:29)
--- NOTE | 2023-02-18 10:02 | OP.PCM_ITS ---
Operative Report Date of Procedure: 02/18/23 Preoperative diagnosis: Left knee DJD Postoperative diagnosis: Same Procedure: Left total knee arthroplasty CT guided Robotic Assisted Implant: Waldo triathlon press fit, femoral component size2, tibial baseplate size 3, asymmetric patella size 35, polyethylene X3 size 9 CS Anesthesia: Spinal with adductor canal block Tourniquet time: 13 minutes at 300 mmHg Complications: None Condition: Stable to PACU Estimated blood loss: 250 cc Technical Applications Specialist Francisco Bhakta. My physician mailroom assistant was a vital part of this case. He was important in appropriate retraction during the case, and protection of soft tissues during procedure. His intimate knowledge of the case and my steps aided in safe and expedient completion of the procedure as well as appropriate position of the extremity during the case. He was also vital in assisting with closure under my direct supervision. Indication for procedure: This is a 57-year-old female with long standing degenerative joint disease of the knee who has failed conservative treatment and wished to proceed with elective total knee arthroplasty. Risk benefits and alternatives were reviewed including; risk of bleeding, infection, nerve artery and tissue damage, continued pain, postoperative stiffness, venous thromboembolism, need for postoperative rehabilitation, mechanical feel to the knee, and expected postoperative course. The pre- operative CT and templating was performed with component sizing. Procedure: The patient was met in the preoperative holding area. The operative extremity was identified by both patient and physician and was marked. Patient was met by anesthesia. An adductor canal block was placed by anesthesia postop eratively the patient was brought back to the operating room on a wheeled cart and transferred to the operating table in the supine position. Anesthesia was started. A well-padded tourniquet was placed on the operative extremity. The patient was prepped and draped in the usual sterile fashion. A timeout was called to ensure the proper patient procedure and extremity were being contemplated. An esmarch was used to exsanguinate the extremity. The tourniquet was inflated. A 10 blade scalpel was used to make a midline incision down through the skin and subcutaneous tissue. Skin retractors placed. Bovie and Aquamantis were used to perform meticulous hemostasis. full-thickness flaps were elevated medial and lateral along the joint capsule. A deep blade scalpel was used to perform a medial parapatellar arthrotomy. The knee was brought to full extension. A bovie was used to release the soft tissues off the most proximal aspect of the medial tibial plateau, a three-quarter inch curved osteotome was also used in this process. The infrapatellar fat pad was excised. The suprapatellar fat pad was excised partially anteriorolateraly and portion the anterioromedial pad was elevated from the femur. At this point our intra- articular femoral array was placed at a 45 degree angle proximal and posterior to the medial epicondyle. femoral checkpoint was placed at this time. Our tibi al array was placed greater than 1 hands breath below the incision at a 20 degree angle stab incisions were made with a 15 blade scalpel and pins were placed and attached to the tibial array , tibial checkpoint was placed in the proximal tibial metaphysis. Tourniquet was let down. At this point registration ziegler were taken throughout the knee . Once the knee was registered we then tensioned the medial and lateral ligaments in extension and 90 degrees of flexion. We then used these numbers to adjust our components within parameters to balance the knee in both flexion and extension once this was done on our monitor we then proceeded with using the robotic arm to make our tibial plateau cut, anterior and posterior chamfer and distal femur cuts. we removed the cut fragments with the use of a bovie and Christopher, we did use a lamina chemical treatment plant technician to insure we visualized and removed all posterior osteophytes and at this time also used the Aquamantis on the posterior joint capsule. we then trialed and achieved the desired plan with a well-balanced knee. we used the green probe to eunice the corresponding tibial rotation based on our CT template. Lug holes were drilled in the femur the tibia preparation was completed with the appropriate sized base plate pinned based on previous rotation eunice. An appropriate sized fin punch was used on the tibia and 4 corner drill was used for the press fit component and the patella was prepared by first using a caliper to ensure sufficient bone stock and a patellar reamer to remove the desired amount of bone. lug holes drilled for an asymmetric poly. We then brought the knee through range of motion with excellent patellar tracking. We thoroughly irrigated the knee. Trial components were removed a posterior capsular injection was preformed with our standard cocktail. In addition the aqua Mantis was also used to aid in hemostasis. Betadine rinse was allowed to sit and washed out completely. Components were press-fit into place. Aricept rinse was then used followed by several more liters of irrigation after it was allowed to sit. The joint capsule was closed with #1 Ethibond [id number] followed by Vicryl in the subcutaneous tissues 3-0 running Monocryl benzoin and Steri-Strips. Arrays and checkpoints were removed prior to closure all counts were correct stab incisions were closed with a staple standard dressing in the form of Mepilex AG for the main incision and a small Mepilex over the pin holes. Thigh-high YOCASTA hose applied over top of dressing. Patient tolerated the procedure well and was directed to PACU in stable condition . There were no intraoperative complications.
--- NOTE | 2023-02-18 10:04 | DCINST_ITS ---
Discharge Instructions Diet Discharge Diet: No restrictions Activity Weight Bearing Status: Weight bearing as tolerated Dressing / Incision Call your doctor if you observe: Shortness of breath and Chest pain Additional Dressing/Incision Instructions:: Ice and elevate lower extremities 2 weeks while not ambulating. Ambulation is encouraged. Weight bearing as tolerated. Use assistive devise for stability. Encourage FULL knee extension and flexion 1 time EVERY time you get up and down and MULTIPLE times per day. No showering until 72 hours after surgery. Begin showering postop day #3. Remove the dressing prior to shower and gently wash with warm water and antibacterial soap then pat dry and place abdominal pad (or plain gauze) and YOCASTA hose over top. This is to be done daily. Do not submerge for 3 weeks. If not showering daily after the initial 72 hours then you must clean incision and change dressing daily. Do not allow animals near the incision area. Keep clean. Follow anti-coagulation recommendations as prescribed. Do not take any NSAIDs while on blood thinner. Do not take any additional narcotic pain medication other than what was prescribed on your surgery day without discussing with physician. Narcotic medication can be addictive. Do not drink alcohol while taking narcotics. Supplement narcotic prescription with acetaminophen 1000 mg 4 times a day. Start physical therapy. If you are not currently scheduled for physical therapy or you are unsure of appointment time please call office [facility] to arrange. Call Dr. Hall with any concerns. Follow Up Care Please Follow Up With: Lane Hall DO When: 2 weeks Test Results: Test results from this visit will be discussed in further detail at your follow- up appointment, if applicable. Discharge Plan Admission Primary Reason for Your Visit: Left total knee arthroplasty Attending Provider: Lane Hall Primary Care Provider: Chapito Lane Discharge Orders/Prescriptions Prescriptions: New acetaminophen [acetaminophen] 500 mg tablet 1,000 mg PO Q6H PRN Qty: 100 0RF cephalexin [cephalexin] 500 mg capsule 1,000 mg PO Q8 Qty: 4 0RF Rx Instructions: take 2 tabs at 9:00 pm and 2 tabs morning after surgery 7 AM Eliquis 2.5 mg tablet 2.5 mg PO BID Qty: 42 0RF Rx Instructions: Begin morning after surgery 7 AM oxycodone 5 mg tablet 5 - 10 mg PO Q4H PRN (Reason: pain) 7 Days Qty: 60 0RF Continued furosemide 20 mg tablet 20 mg PO DAILY Patient Comments: TAKE 1 TABLET BY MOUTH ONCE DAILY NEEDED fluticasone propion-salmeterol 250-50 mcg/dose blister with device 1 inh inhalation DAILY Patient Comments: Inhale 1 Puff as instructed twice daily. RINSE AND GARGLE MOUTH WITH WATER AFTER EACH USE. pantoprazole 40 mg tablet,delayed release (DR/EC) 40 mg PO DAILY Patient Comments: Take 1 tablet by mouth once daily. levothyroxine 112 MCG tablet 112 mcg PO DAILY montelukast 10 MG tablet 10 mg PO DAILY albuterol sulfate 2.5 MG/3 ML solution for nebulization 2.5 mg inhalation Q4H PRN PRN (Reason: Sob &/Or Wheezing) phentermine 37.5 mg tablet 37.5 mg PO DAILY Other Ambulatory Orders: 12 Lead EKG (Routine) Timeframe: 20230210 Location: None Selected Ordered By: Dr. Lane Hall Referrals / Follow Up: Chapito Lane DO [Primary Care Provider] - Disposition Disposition (needs filled in before D/C Order can be placed): Home, Self Care
--- NOTE | 2023-02-18 10:30 | RAD_ITS ---
STUDY: X-RAY - LEFT KNEE REASON FOR EXAM: Female, 57 years old. Postoperative evaluation after total knee arthroplasty. TECHNIQUE: 2 view(s) of the knee. COMPARISON: October 18, 2022 FINDINGS: There is a 3 component total knee arthroplasty in anatomic position. There are expected post-operative findings. There are no complications. No other significant abnormality is identified. RAD/Knee 1 or 2 Views IMPRESSION: Total knee arthroplasty in anatomic alignment without complications. Electronically Signed: Russel Murphy MD at 14:35 EST ,
[2023-02-18] MEDS: Lactated Ringers 1,000 ML 125 ML IV (11:33)
[2023-02-18] MEDS: Ketorolac 30 MG/ML Syringe 15 MG IV (14:08)
[2023-02-18] MEDS: Ondansetron 4 MG/2 ML Vial IV (15:31)
--- NOTE | 2023-02-18 18:00 | PCM.PN.HOSP ---
Subjective Subjective 57-year-old female presented to the hospital for an elective left total knee arthroplasty. Her postoperative course was complicated by dizziness and difficulty ambulating secondary to anesthesia more likely. She did have 230 mg of propofol intraoperatively which is likely contributing to her altered sensation. Report from the nurse over the phone was that she was unable to stay awake very well and was extremely dizzy at the moment she stood up. About an hour and a half after the conversation by the time I was able to evaluate her she was alert and oriented and was able to sit up in bed though she did have dizziness with that. She states that she is feeling a little bit better than earlier in the day however it was felt that she would do better spending the night in the hospital Objective Data Objective Data Vital Signs: Vital Signs Temp Pulse Resp BP Pulse Ox O2 Del Method O2 Flow Rate 97.5 F L 78 18 112/60 94 Room Air 4 02/18/23 16:20 02/18/23 16:20 02/18/23 16:20 02/18/23 16:20 02/18/23 16:20 02/18/23 16:20 02/18/23 11:59 Oxygen Flow Rate (L/min) 4 Oxygen Delivery Method Room Air Weight: 240 lb 4.862 oz Body Mass Index (BMI) 38.7 Intake & Output: Intake and Output for Last 24 Hours 02/17/23 02/18/23 02/19/23 03:59 03:59 03:59 Intake Total 2330 / 2330 Balance 2330 / 2330 Lab / Micro Data 02/10/23 07:33 02/10/23 07:33 Labs: Laboratory Results - last 24 hr 02/18/23 06:16: POC Glucose 97 Micro: Microbiology 02/10/23 07:33 Swab (Method) Nasal Screen MRSA/MSSA - Final Radiography Diagnostic Testing: Radiology Impression Knee X-Ray 02/18/23 10:30 IMPRESSION: Total knee arthroplasty in anatomic alignment without complications. Electronically Signed: Russel Murphy MD at 14:35 EST , Physical Exam Narrative General: Alert, Oriented x3, Cooperative, No apparent distress HEENT: Atraumatic, PERRLA, EOMI, Normocephalic Oral: Moist Mucosa Neck: Supple, No JVD Lungs: Clear to auscultation, Normal air movement, No rhonchi, No wheeze, No rales Cardiovascular: Regular rate, Regular Rhythm, Normal S1, Normal S2, No murmurs Abdomen: Soft, Non Tender, Non-Distended, No Hepato-splenomegaly Extremities: No edema, Capillary Refill Less than 3 Seconds Skin: Incision CDI Musculoskeletal: No Tenderness to Palpation of Joints or Extremities Neurological: Cranial nerves II-XII grossly intact, Motor Exam 5/5 strength throughout, Sensory exam intact to light touch and pain Psych/Mental Status: Normal Affect, Appropriate Assessment & Plan Assessment/Plan (1) Status post total left knee replacement: PLAN: Plan 1. Left total knee arthroplasty on 02/18/2023 with postoperative dizziness ? Pain management per primary ? PT/OT ? I do anticipate the dizziness will resolve on its own once the the anesthesia has been metabolized 2. Hypothyroidism ? Stable ? Continue with Synthroid 3. GERD ? Stable ? Continue with PPI DVT: Eliquis Charges/Coding Visit Charges Office Visits / Consults: 62723 OV L3 New
[2023-02-18] MEDS: oxyCODONE 5 MG Tablet PO (21:25)
[2023-02-18] MEDS: Montelukast 10 MG Tablet PO (21:25)
[2023-02-18] MEDS: Pantoprazole Sodium 40 MG Tablet PO (21:25)
[2023-02-18] MEDS: Senna/Docusate Sodium 1 Tablet 2 TABLET PO (21:25)
[2023-02-18] MEDS: Cefazolin 1 GM/50 ML BAG IV (21:33)
[2023-02-19 04:40] VITALS: BP 118/55; PULSE 71; RESP 18; TEMP 36.6; O2SAT 94
[2023-02-19] MEDS: Cefazolin 1 GM/50 ML BAG IV ×2 (04:56→12:29)
[2023-02-19] MEDS: APIXABAN 2.5 MG TABLET (WCH) PO (04:58)
[2023-02-19] MEDS: Acetaminophen 500 MG Tablet 1000 MG PO ×2 (04:58→13:25)
[2023-02-19] MEDS: Levothyroxine 112 MCG Tablet PO (04:58)
[2023-02-19] MEDS: oxyCODONE 5 MG Tablet PO ×3 (04:58→15:17)
[2023-02-19 07:34] VITALS: BP 94/58; PULSE 75; RESP 14; TEMP 36.6; O2SAT 93
[2023-02-19] MEDS: Furosemide 20 MG Tablet PO (08:01)
[2023-02-19] MEDS: Senna/Docusate Sodium 1 Tablet 2 TABLET PO (08:02)
[2023-02-19] MEDS: Montelukast 10 MG Tablet PO (08:04)
[2023-02-19] MEDS: Pantoprazole Sodium 40 MG Tablet PO (08:04)
[2023-02-19 08:45] LABS: Hematocrit 29.6 % (37-47); Hemoglobin 9.5 g/dL (12.0-15.0); Mean Corp Hgb Conc 32.1 g/dL (32-36); Mean Corpuscular Hgb 29.5 pg (27.0-32.0); Mean Corpuscular Volume 91.9 fL (81-99); Mean Platelet Vol. 10.9 fl (6.2-12.0); Platelet Count 163 K/mm3 (150-450); RBC Distribution Width CV 12.3 % (11.6-14.6); RBC Distribution Width SD 41.2 fl (35.1-43.9); Red Blood Count 3.22 M/mm3 (4.2-5.4); White Blood Count 8.6 K/mm3 (4.4-11.0)
[2023-02-19 08:55] VITALS: BP 99/54; PULSE 69; RESP 16; TEMP 36.6; O2SAT 94
[2023-02-19 09:12] LABS: Anion Gap 4 (5-15); BUN 16 mg/dL (7-18); BUN/Creat Ratio 20.9 RATIO (10-20); Calcium,Total 8.4 mg/dL (8.5-10.1); Chloride 109 mmol/L (98-107); Creatinine, Serum 0.76 mg/dL (0.55-1.02); EST Glomerular Filtration Rate 83 mL/min (>60); Est Glom Filt Rate - Afr Amer 100 mL/min (>60); Estimated Creatinine Clearance 76.45 ml/min; Glucose 107 mg/dL (74-106); Potassium 3.8 mmol/L (3.5-5.1); Sodium Level 140 mmol/L (136-145)
[2023-02-19] MEDS: Ondansetron 4 MG/2 ML Vial IV (10:37)
--- NOTE | 2023-02-19 11:15 | CASEMGMT ---
Addendum entered by Christy Hightower 02/19/23 15:04: TC to [facility] Retail pharmacy, pt cost of eliquis is zero. Original Note: NESSA PARRISH Assessment: Face to Face with pt for initial transition planning/care coordination assessment. NESSA PARRISH introduced self and role at [facility], pt voices understanding and consents to assessment. Pt is A&O x4 and answers all questions appropriately at this time. Pt sitting up in chair in no distress with at bedside. Care providers, pharmacy, and demographics verified/updated. Admitting Dx: L TKR PCP:Domingo Specialists:love Hall; Zev [facility], pulm Preferred Pharmacy: [facility] Retail [facility] [employer] [facility] Prescription Benefit: yes LNOK: Francisco Quispe, Living Arrangements: Pt lives with , dtr and grandchildren in a split level home with 2 steps to enter. Pt then has 6 steps up and down. Pt reports she was I in ADL's prior to surgery. Pt is able to assist her at home. Pt denies concerns at home. Transportation: Pt drives self and denies concerns with transportation. Pt is able to transport her until she can drive again. DME:rollator which was used prior; FWW, [employer] and shower chair HHC/SNF: Denies hx of Pt states no concerns with going home at time of dc. Pt states she has oupt therapy set up at [facility] on Friday at 11am. Pt states no further concerns/needs. CM to follow. Advised pt to ask CM if any further question/concerns/needs arise, voices understanding. Pt Goal: Home with outpt therapy already set up Plan: Home with outpt therapy already set up
[2023-02-19 11:34] VITALS: BP 109/66; PULSE 75; RESP 16; TEMP 36.4; O2SAT 95
--- NOTE | 2023-02-19 14:24 | PCM.PN.ORT ---
Subjective Subjective Patient seen and examined. She is doing much better today. She was scheduled as a same-day total knee arthroplasty however she became lightheaded after surgery and was not confident in standing and ambulating therefore she was observed she did have some nausea this morning which has resolved her lightheadedness has improved but is still present. Her vital signs and labs are all nonconcerning. She wishes to be discharged home Objective Data Objective Data Vital Signs: Vital Signs Temp Pulse Resp BP Pulse Ox O2 Del Method O2 Flow Rate 97.6 F L 75 16 109/66 95 Room Air 4 02/19/23 11:34 02/19/23 11:34 02/19/23 11:34 02/19/23 11:34 02/19/23 11:34 02/19/23 13:54 02/18/23 11:59 Oxygen Flow Rate (L/min) 4 Oxygen Delivery Method Room Air Weight: 240 lb 4.862 oz Body Mass Index (BMI) 38.7 Intake & Output: Intake and Output for Last 24 Hours 02/17/23 02/18/23 02/19/23 23:59 23:59 23:59 Intake Total 3592 / 3592 350 / 350 Balance 3592 / 3592 350 / 350 Lab / Micro Data 02/19/23 08:05 02/19/23 08:05 Labs: Laboratory Results - last 24 hr 02/19/23 08:05: WBC 8.6, RBC 3.22 L, Hgb 9.5 L, Hct 29.6 L, MCV 91.9, MCH 29.5, MCHC 32.1, RDW Std Deviation 41.2, RDW Coeff of Evangelist 12.3, Plt Count 163, MPV 10.9, Sodium 140, Potassium 3.8, Chloride 109 H, Carbon Dioxide 27.0, Anion Gap 4 L, BUN 16, Creatinine 0.76, Estim Creat Clear Calc 76.45, Est GFR (MDRD) Af Amer 100, Est GFR (MDRD) Non-Af 83, BUN/Creatinine Ratio 20.9 H, Glucose 107 H, Calcium 8.4 L Micro: Microbiology 02/10/23 07:33 Swab (Method) Nasal Screen MRSA/MSSA - Final Radiography Diagnostic Testing: Radiology Impression Knee X-Ray 02/18/23 10:30 IMPRESSION: Total knee arthroplasty in anatomic alignment without complications. Electronically Signed: Russel Murphy MD at 14:35 EST , Physical Exam Const alert, oriented x3 and no apparent distress Extremity Extremity Narrative: Left knee dressing clean dry intact compartments soft neurovascular intact EHL tibialis anterior gastrocsoleus intact station to light touch 2 out of 4 pedal pulses Assessment & Plan Assessment/Plan (1) Status post total left knee replacement: PLAN: Plan Postop day #1 left total knee arthroplasty PT OT weightbearing as tolerated encourage knee range of motion Lightheadedness improved vital signs stable labs reviewed nonconcerning patient wishes to be discharged home Patient will have physical therapy and may need a second round of therapy before being discharged home versus discharged after first round depending on how she does Follow-up in the office 2 weeks.
--- NOTE | 2023-02-19 15:46 | PHA.DC_ITS ---
Pharmacy OR Med Reconciliation Pharmacy Service has performed discharge medication reconciliation for this patient. Medication education papers prepared, patient discharged before I was able to clinical mental health counselor. The patient's discharge medication list was reviewed for discrepancies and discrepancies were resolved. Medications at Discharge Home Medications levothyroxine 112 mcg tablet 112 mcg PO DAILY 03/29/13 montelukast 10 mg tablet 10 mg PO DAILY 02/09/16 albuterol sulfate 2.5 mg/3 mL (0.083 %) solution for nebulization 2.5 mg inhalation Q4H PRN PRN Sob &/Or Wheezing 03/25/17 fluticasone 250 mcg-salmeterol 50 mcg/dose blistr powdr for inhalation 1 inh inhalation DAILY 10/18/22 furosemide 20 mg tablet 20 mg PO DAILY 10/18/22 pantoprazole 40 mg tablet,delayed release 40 mg PO DAILY 10/18/22 phentermine 37.5 mg tablet 37.5 mg PO DAILY 02/05/23 acetaminophen 500 mg tablet 1,000 mg (2 x 500 mg) PO Q6H PRN #100 tabs 02/18/23 apixaban 2.5 mg tablet (Eliquis) 2.5 mg PO BID #42 tabs 02/18/23 oxycodone 5 mg tablet 5 - 10 mg (1 - 2 x 5 mg) PO Q4H PRN pain 7 days #60 tabs 02/18/23
== END 2023-02-19 15:30 | disposition home or self-care (01) ==
LOC: SDC 20:38 → MS3 20:38
PROVIDERS: Admitting Provider Orthopaedic Surgery; PCP Student in an Organized Health Care Education/Training Program; Referring Provider Orthopaedic Surgery; Visit Provider Orthopaedic Surgery
PROC: 0SRD0JZ Replacement of Left Knee Joint with Synthetic Substitute, Open Approach (ICD-10-PCS; CPT 27447; principal; 2023-02-18 07:00)
DX: M17.12 Unilateral primary osteoarthritis, left knee (principal); E03.9 Hypothyroidism, unspecified; Z79.899 Other long term (current) drug therapy; K21.9 Gastro-esophageal reflux disease without esophagitis; Z79.890 Hormone replacement therapy; J45.909 Unspecified asthma, uncomplicated; Z86.711 Personal history of pulmonary embolism
CPT/HCPCS: 27447; S2900; 01402; 64447; 36415; 73560; 80048; 82962; 82985; 83036; 83735; 84443; 85025; 85027; 85610; 85730; 86850; 86900; 86901; 87081; 88305; 88311; 93005; 94668; 96365; 96366; 96375; 97110; 97116; 97162; 97166; 97530; 99221; C1776; J7120; G0378; J2405; J3475; J3490

== ENCOUNTER 2023-03-26 12:00 | Outpatient (RCR) | payer OTHER, SELFPAY ==
--- NOTE | 2023-02-24 08:41 | HP.PTEVAL ---
Patient's Visit Information Visit Information Visit Information: NIKIA HUMPHREYS is a 57 year old F referred to Physical Therapy by Dr. Lane Hall DO with a diagnosis of L TKA, DOS: 02/18/23. Date of Evaluation: 02/21/23 Physical Therapist: Les Reid DPT Visit Plan Frequency: 3x /Week Duration: 6 Weeks Plan: 1) extension and flexion ROM progressing towards end range 2) vaso and ice for edema control 3) quad activation with isometrics progressing to functional strengthening 4) gait progression to least restrictive device Check incision next visit as she still had bandage on for 1 more day Subjective Subjective: Pt. is here today for her initial evaluation with diagnosis of L TKA DOS: 02/18/23. Pt. reports overall doing well. She arrives using standard walker. Pt. reports having higher levels of pain today, but is overall doing okay. No N/T. No fever. Pt. has bandage in place, to remove next day. Pt. is icing and wearing TEDs as prescribed. Pt. works at local event location. Pt. has to stand for longer periods of time. Pt. has been doing her exercises at home as prescribed. Unable to complete SLR though. Pt. is hopeful to reduce symptoms in order to get back to all recreational and work activities without limitations. Pt. is sleeping okay. She was been having trouble with pain meds. pt. to call into physician about this. Pain L knee: Pain Intensity (Out of 10): 5 Pain Intensity Range: 3 and 8 Objective Objective: POSTURE: Pt. has increased R lateral lean in stance. Pt. lacks TKE in stance as well. PALPATION: Pt. has tenderness throughout L knee. Pt. has a 4 cm difference at mid patella from side to side. Negative homans sign NEURO: pt. has normal sensation throughout BLEs. Pt. is able to rise on heels and toes without issues. ROM: L knee: 0-5-92deg. MMT: L knee: ext 0#, flexion 6#; hip: flexion 0#. RLE: knee: ext 37#, flexion 24#; hip: flexion 21#. GAIT: Pt. is able to ambulate, but is methodical and occasional increase in symptoms with L stance phase. Pt. unable to ambulate without AD. Balance/Special Test Scores Lower Extremity Functional Score: 0 TUG Test Time Seconds: 58.2 Goals Goal 1:: LTG: Pt. to be I with HEP. Goal Time Frame: 4-6 Weeks Goal 2:: STG: pt. to have increased PROM of L knee to 0-0-120deg allowing for increased functional mobility. Goal Time Frame: 2 Weeks Goal 3:: LTG: Pt. to have increased LLE strength symmetrical to R allowing for increased stability with gait. and functional mobility. Goal Time Frame: 4-6 Weeks Goal 4:: LTG: Pt. to ambulate with normal gait pattern without use of AD. Goal Time Frame: 4-6 Weeks Goal 5:: LTG: Pt. to negotiates1 flight of stairs with 1 HR with reciprocal pattern. Goal Time Frame: 4-6 Weeks Goal 6:: LTG: Pt. to have improved TUG score to less than 10sec. Goal Time Frame: 4-6 Weeks Rehabilitation Potential Physical Therapy Diagnosis: Pt. has signs and symptoms consistent with L TKA. DOS: 02/18/23. Pt. is overall doing well, but has marked hypomobility, weakness, increased pain and difficulty with all ADLs. Pt. would benefit from PT to address the above limitations progressing back to all recreational and work activities without limitations. Rehabilitation Potential: Excellent Anticipated Interventions Patient/Client Instruction: Educate patient on: Condition, Plan of Care, Risk Factors and Benefits of Fitness Program For the Purpose of:: To improve decision making, To facilitate caregiver knowledge, To improve self management, To prevent re-injury and To improve ability to perform tasks related to life management Therapeutic Exercise to Include: Strength training, Power training, Endurance training, Passive ROM and Active ROM For the Purpose of:: To decrease pain, To decrease swelling/inflammation, To increase ROM, To improve nutrient delivery to tissue, To increase oxygenation perfusion and To improve muscle performance and motor function Manual Therapy Techniques to Include: Mobilization and Soft tissue mobilization For the Purpose of:: To decrease pain, To decrease swelling/inflammation, To increase ROM and To improve nutrient delivery to tissue Cryotherapy (ice pack, ice massage): Yes Vasopneumatic device: Yes For the Purpose of:: To decrease pain, To decrease swelling/inflammation, To increase ROM and To improve nutrient delivery to tissue Text: Thank you for the opportunity to evaluate your patient. For Medicare and Medicare HMO plans, please review the plan of care and approve it. It will need to be FAXED BACK to us at [phone] for Medicare purposes. For Medicare only, by signing this I certify the plan of care. Please let me know if there are questions or concerns regarding this plan of care. Physician Signature: Date:
--- NOTE | 2023-03-26 14:48 | HP.PTREVAL ---
Re-Evaluation Intro: Dr. Lane Hall, DO, It has been my pleasure to treat NIKIA HUMPHREYS over the last 10 visits for L TKA, DOS: 02/18/23. Please see the progress note below for an update on the physical therapy plan of care! Subjective Subjective: Pt. is being seen for the second half of her PT this date, for her re assessment. Pt. reports overall doing well. She does have some tingling along her anterior hair. She has started back to work and has been a little bit more sore since doing so. She is very compliant with her exercises and is now riding her peloton at home for ROM. Objective Objective/Function: Pt. is ambulating well, pt. has some slight antalgic pattern, but much improved. STAIRS: reciprocal pattern with slight functional weakness with descending. ROM: 0-0-120deg with passive over pressure. She still has some marked edema in her LLE, but has been on her leg most of the day at work. She is wearing her compression stockings at work as well. [employer] Nikia is doing well. She is to follow up with physician next week and determine if further PT is warranted. Plan Plan Plan: 1) extension and flexion ROM progressing towards end range 2) vaso and ice for edema control 3) quad activation with isometrics progressing to functional strengthening 4) gait progression to least restrictive device Check incision next visit as she still had bandage on for 1 more day Balance/Gait/Functional tests Balance/Special Test Scores Lower Extremity Functional Score: 53 TUG Test Time Seconds: 58.2 Tug Test: >30sec.=impaired mobility Goals Goals Goal 1:: LTG: Pt. to be I with HEP. Goal Time Frame: 4-6 Weeks Goal Progress: Goal Met Goal 2:: STG: pt. to have increased PROM of L knee to 0-0-120deg allowing for increased functional mobility. Goal Time Frame: 2 Weeks Goal Progress: Goal Met Goal 3:: LTG: Pt. to have increased LLE strength symmetrical to R allowing for increased stability with gait. and functional mobility. Goal Time Frame: 4-6 Weeks Goal Progress: Progressing Goal 4:: LTG: Pt. to ambulate with normal gait pattern without use of AD. Goal Time Frame: 4-6 Weeks Goal Progress: Progressing Goal 5:: LTG: Pt. to negotiates1 flight of stairs with 1 HR with reciprocal pattern. Goal Time Frame: 4-6 Weeks Goal Progress: Goal Met Goal 6:: LTG: Pt. to have improved TUG score to less than 10sec. Goal Time Frame: 4-6 Weeks Goal Progress: Progressing Anticipated Interventions Anticipated Interventions Patient/Client Instruction: Educate patient on: Condition, Plan of Care, Risk Factors and Benefits of Fitness Program For the Purpose of:: To improve decision making, To facilitate caregiver knowledge, To improve self management, To prevent re-injury and To improve ability to perform tasks related to life management Therapeutic Exercise to Include: Strength training, Power training, Endurance training, Passive ROM and Active ROM For the Purpose of:: To decrease pain, To decrease swelling/inflammation, To increase ROM, To improve nutrient delivery to tissue, To increase oxygenation perfusion and To improve muscle performance and motor function Manual Therapy Techniques to Include: Mobilization and Soft tissue mobilization For the Purpose of:: To decrease pain, To decrease swelling/inflammation, To increase ROM and To improve nutrient delivery to tissue Cryotherapy (ice pack, ice massage): Yes Vasopneumatic device: Yes For the Purpose of:: To decrease pain, To decrease swelling/inflammation, To increase ROM and To improve nutrient delivery to tissue Re-Evaluation Ending Re-evaluation ending: Please do not hesitate to contact me at [phone] by phone or if you have questions or concerns regarding this new plan of care! Sincerely, Les Reid DPT
== END 2023-03-26 19:00 | disposition home or self-care (01) ==
LOC: PT 12:00
PROVIDERS: PCP Student in an Organized Health Care Education/Training Program; Referring Provider Orthopaedic Surgery; Visit Provider Orthopaedic Surgery
DX: M17.12 Unilateral primary osteoarthritis, left knee (principal); Z96.652 Presence of left artificial knee joint
CPT/HCPCS: 97016; 97110; 97140; 97161; 97164